=== PATIENT | male | born 1945 | race Hispanic/Latino ===

== ENCOUNTER 2024-09-21 03:02 | Inpatient (IN) | payer MEDICARE ==
[~2024-09-21] VITALS: Ht 175.3 cm; Wt 72.6 kg
[2024-09-21] VITALS (12 sets, daily range): BP systolic 139; BP diastolic 74; PULSE 64–107; RESP 18–32; TEMP 97.8; O2SAT 87–100
[~2024-09-21 03:02] MED LIST: AMLO-257 PO; ASPI-1197 PO; ASPI-1443 PO; ATOR40TA71 PO; DAPA10TA PO; DAPA1TAB3 PO; FLUT12AE IH; FURO20TA4 PO; GLIP-162 PO; HYDR50TA37 PO
[2024-09-21 03:13] LABS: ABG BASE EXCESS -4.8 mmol/L (-2.0-3.0); ABG HCO3 19.9 mmol/L (21.0-28.0); ABG OXYGEN SATURATION 95.6 % (94.0-98.0); ABG PCO2 35 mmHg (35-48); ABG PH 7.369 (7.350-7.450); CARBON MONOXIDE 0.6 % (0.5-1.5); DEVICE COMMENT LR RN; HHb 4.4; PO2, ARTERIAL BG 93.7 mmHg (83.0-108.0); VENT MODE, BG NRM (ROOM AIR)
[2024-09-21] MEDS: Solu-medROL 125MG VIAL IVP ONE (03:20)
[2024-09-21] MEDS: IpraTROPium/alBUTERol SULFATE 3 ML SOLUTION IH ONE ×2 (03:23)
--- NOTE | 2024-09-21 03:23 | ERN ---
ED Note History of Present Illness Stated Complaint: SOB X 1 HOUR Chief Complaint: Shortness of Breath Time Seen by MD: 03:06 Dictation: This is a 79-year-old male who presented to the emergency room via EMS with increasing shortness of breath and respiratory distress for more than an hour. He was recently admitted to the hospital for similar presentation and discharged on 09/13/2024 after course of hospitalization. EMS reported that he was in moderate distress and they placed him on O2, gave albuterol nebulizer treatment prior to arrival in the ER. Patient appeared to be in moderate distress, speaks in broken sentences. No diaphoresis. Patient was recently treated with antibiotic therapy and steroids. No recent travel or new pets at home. He reports progressively getting worse with reduced exercise tolerance over the years. He admits to cough with very scant amounts of sputum if any. No hemoptysis. Patient has never been intubated in the past A stat ABG was obtained which showed a pH of 7.36 pCO2 of 35 PO2 of 93 on FiO2 of 100% Temperature 98.2 pulse 71 respirations 18 blood pressure 130/65 with a pulse oximetry of 98% on 100% O2 via non-rebreather mask His chronic medical problems include hypertension, hyperlipidemia, diabetes mellitus type 2 , atrial fibrillation status post pacemaker placement Allergies: Coded Allergies: No Known Drug Allergies (Unverified Allergy, Unknown, 07/17/24) Home Meds Active Scripts Fluticasone/Salmeterol (Advair Hfa 45-21 Mcg Inhaler) 45 Mcg-21 Mcg/Actuation Hfa.aer.ad, 2 PUFF IH BID PRN for SHORTNESS OF BREATH for 30 Days, #1 INHALER 0 Refills Prov:RJ LEON NP 07/21/24 Hydralazine HCl (Hydralazine HCl) 50 Mg Tablet, 50 MG PO BID for 30 Days, #30 TAB Prov:RJ LEON NP 07/21/24 Reported Medications Furosemide (Furosemide) 20 Mg Tablet, 1 TAB PO DAILY for 30 Days, #30 TAB 0 Refills 09/10/24 Aspirin (Aspirin) 81 Mg Tab.chew, 1 TAB PO DAILY for 30 Days, #30 TAB 0 Refills 09/10/24 Dapagliflozin Propanediol (Farxiga) 10 Mg Tablet, 1 TAB PO DAILY for 30 Days, #30 TAB 0 Refills 09/10/24 Amlodipine Besylate (Amlodipine Besylate) 5 Mg Tablet, 1 TAB PO DAILY for 30 Days, #30 TAB 0 Refills 09/10/24 Aspirin (Aspirin EC) 81 Mg Tablet.dr, 1 TAB PO DAILY for 30 Days, #30 TAB 0 Refills 07/17/24 Atorvastatin Calcium (Atorvastatin Calcium) 40 Mg Tablet, 1 TAB PO DAILY for 30 Days, #30 TAB 0 Refills 07/17/24 Glipizide (Glipizide ER) 5 Mg Tab.er.24, 1 TAB PO DAILY for 30 Days, #30 TAB 0 Refills 07/17/24 Dapagliflozin/Metformin HCl (Xigduo Xr 5 mg-1,000 mg Tablet) 5 Mg-1,000 Mg Tab.bp.24h, 1 TAB PO DAILY for diabetes for 30 Days, #30 TAB 0 Refills 07/17/24 Past Medical History Past Medical History: A-Fib, Diabetes-Type II, High Cholesterol, Heart Disease, Hypertension Surgical History: Pacer/AICD Family History: Negative RN Note Reviewed/Agreed w/PFSH: Yes Review of System Dictation Constitutional: Negative for fever,chills, and weight loss Eyes: Negative for injury, pain,redness, and discharge ENT: Negative for injury,pain or swelling Cardiovascular: Negative for chest pain, palpitations, and edema Respiratory: Positive for shortness of breath, cough, and wheezing, Abdomen/GI: Negative for abdominal pain, nausea, vomiting, diarrhea, and constipation Back: Negative for injury and pain : Negative for injury, bleeding and discharge MS/Extremity: Negative for injury and deformity Skin: Negative for rash, and discoloration Neuro: Negative for headache, weakness, numbness, tingling, and seizure Psych: Negative for suicide ideation, homicidal ideation, and hallucinations Initial Vital Sign VS Vital Signs Date Time Temp Pulse Resp B/P (MAP) Pulse Ox O2 Delivery O2 Flow Rate FiO2 09/21/24 03:03 98.2 71 18 130/65 96 Aerosol Mask+ 10 100 Physical Exam Dictation General: awake, alert, elderly male in moderate distress on 100% oxygen via non- rebreather mask Head/Face: Normocephalic, atraumatic Eyes: PERRL, EOMI, vision at baseline ENT: oral cavity clear, TMs clear, no signs of infection Neck: Trachea midline, supple, no nuchal rigidity Cardiovascular: RRR, normal S1/S2, No MRGs, no JVD Respiratory: Poor air entry with prolonged expiratory phase, decreased breath sounds bilaterally Abdomen: Soft, non-tender, non-distended, normal bowel sounds, no guarding or rebound. Skin: Warm, dry, normal turgor, no rash MS/Extremity: Pulses equal, no cyanosis, neurovascular intact, FROM Neuro: COAx4, GCS 15, strength 5/5, CN 2-12 intact, normal cerebellar exam, normal gait, Psych: Normal behavior, mood, and affect normal Extremities-trace edema without any palpable cords, Homans sign is negative Results (Laboratory/Radiology) Laboratory/Radiology Laboratory Tests Test 09/21/24 03:12 09/21/24 03:15 09/21/24 03:25 Blood Gas Specimen Type Arterial Arterial Blood pH 7.369 (7.350-7.450) Arterial Blood Partial Pressure CO2 35 mmHg (35-48) Arterial Blood Partial Pressure O2 93.7 mmHg (83.0-108.0) Arterial Blood HCO3 19.9 mmol/L (21.0-28.0) L Arterial Blood Oxygen Saturation 95.6 % (94.0-98.0) Arterial Blood Base Excess -4.8 mmol/L (-2.0-3.0) L Hemoglobin (Blood Gas) 10.7 g/dL (13.5-17.5) L Sodium (Blood Gas) 136 MMOL/L (136-145) Bedside Potassium (Blood Gas) 3.7 MMOL/L (3.4-4.5) Bedside Chloride (Blood Gas) 102 MMOL/L (98-107) Bedside Glucose (Blood Gas) 123 MG/DL (65-95) H Bedside Ionized Calcium (Blood Gas) 1.18 MMOL/L (1.15-1.33) Bedside Lactic Acid (Blood Gas) 0.87 MMOL/L (0.36-0.75) H Blood Gas Temperature 37.0 CELSIUS (35.5-37.0) Blood Gas Flow-by 15.00 L/min (0.00-15.00) Blood Gas Vent Mode NRM (ROOM AIR) FiO2 100.0 % Blood Gas Specimen Comment LR RN White Blood Count 12.2 K/uL (4.8-10.8) H Red Blood Count 4.85 MIL/uL (4.50-6.20) Hemoglobin 10.9 g/dL (14.0-18.0) L Hematocrit 36.8 % (42-54) L Mean Corpuscular Volume 75.9 fL (79-99) L Mean Corpuscular Hemoglobin 22.5 pg (27.0-33.0) L Mean Corpuscular Hemoglobin Concent 29.6 g/dL (32.0-36.0) L Red Cell Distribution Width 17.2 % (11.0-15.5) H Platelet Count 223 K/uL (130-400) Mean Platelet Volume 9.7 fL (7.5-10.5) Immature Granulocyte % (Auto) 0.3 % (0-1) Neutrophils (%) (Auto) 77.5 % (40.0-77.0) H Lymphocytes (%) (Auto) 11.9 % (21.0-51.0) L Monocytes (%) (Auto) 7.2 % (3.0-13.0) Eosinophils (%) (Auto) 2.5 % (0.0-8.0) Basophils (%) (Auto) 0.6 % (0.0-5.0) Neutrophils # (Auto) 9.4 K/uL (1.8-7.7) H Lymphocytes # (Auto) 1.4 K/uL (1.0-4.8) Monocytes # (Auto) 0.9 K/uL (0.1-1.0) Eosinophils # (Auto) 0.30 K/uL (0.00-0.70) Basophils # (Auto) 0.07 K/uL (0.00-0.20) Absolute Immature Granulocyte (auto 0.04 K/uL (0-1) Nucleated Red Blood Cells 0.0 % (0.0-0.19) Red Blood Cell Morphology See comments Sodium Level 138 mmol/L (136-145) Potassium Level 3.5 mmol/L (3.5-5.1) Chloride Level 103 mmol/L (101-111) Carbon Dioxide Level 28 mmol/L (21-32) Blood Urea Nitrogen 25 mg/dL (7-18) H Creatinine 1.5 mg/dL (0.5-1.3) H Glomerular Filtration Rate Calc 48 mL/min (>90) Random Glucose 136 mg/dL (70-105) H Lactic Acid Level 1.9 mmol/L (0.8-2.5) Total Calcium 8.8 mg/dL (8.5-10.1) Total Creatine Kinase 147 U/L (21-232) Troponin I High Sensitivity 19.0 ng/L (4-75) B-Type Natriuretic Peptide 519 pg/mL (0-100) H Influenza Type A Antigen Negative For Type A Influenza Type B Antigen Negative For Type B SARS-CoV-2, RNA, NAAT NEGATIVE SARS CoV-2 Labs Reviewed?: Yes EKG Comment: Twelve lead EKG done on 09/21/2024 at 3:09 a.m. showed a sinus rhythm with a r ate of 60 HI 163, QRS 176, QT/QTC 489/488. Impression sinus rhythm AV paced complexes. Interpreted by ER MD Dr. Pinzon ED Course ED Course Orders Procedure Category Date Status Time Arterial Blood Gas RT 09/21/24 Transmitted 03:07 O2 Nc Keep Sats CPOE 09/21/24 Transmitted Greater 92% 03:07 Bipap Settings RT 09/21/24 Transmitted 03:07 Cbc With Differential LAB 09/21/24 Complete 03:07 B-Type Natriuretic LAB 09/21/24 Complete Peptide 03:07 Cardiac Panel LAB 09/21/24 Complete 03:07 12 Lead Ekg Tracing- EKG 09/21/24 Logged Technical 03:07 Methylprednisolone PHA 09/21/24 Complete Succ 125mg (Solu-Medr 03:30 Basic Metabolic Panel LAB 09/21/24 Complete 03:07 Arterial Blood Gas LAB 09/21/24 Complete Arterial + 03:12 Lactic Acid LAB 09/21/24 Complete 03:17 Chest 1vw RAD 09/21/24 Taken 03:17 Blood Cult KARLOS 09/21/24 In Process 03:17 Ipratropium/Albuterol PHA 09/21/24 Complete Neb (Duoneb) 03:30 Ipratropium/Albuterol PHA 09/21/24 Complete Neb (Duoneb) 03:21 Influenza Type A & B, LAB 09/21/24 Complete Rapid 03:29 Covid Rna Naat LAB 09/21/24 Complete 03:29 Amlodipine 5 Mg Tab PHA 09/21/24 Logged (Norvasc 5mg Tab) 09:00 Aspirin 81mg Chew Tab PHA 09/21/24 Logged (Aspirin 81mg Chew 09:00 Aspirin 81mg Ec Tab PHA 09/21/24 Logged (Aspirin 81mg Ec Tab 09:00 Atorvastatin 40mg PHA 09/21/24 Logged (Lipitor 40mg) 09:00 Furosemide 20 Mg PHA 09/21/24 Logged Tablet (Lasix 20mg 09:00 (Nf) Dapagliflozin PHA 09/21/24 Pending Propanediol (Farxiga) 09:00 Levofloxacin 750 PHA 09/21/24 Transmitted Mg/D5w 150 Ml 06:30 Edm Admit Bridge Order ADM 09/21/24 Transmitted 06:25 Admit Orders ADM 09/21/24 Transmitted 06:25 Current Medications Medications (Trade) Dose Ordered Sig/Rachelle Route PRN Reason Start Time Stop Time Status Last Admin Dose Admin Albuterol (DUOneb) 1 udvial ONCE ONCE IH 09/21/24 03:30 09/21/24 03:31 DC 09/21/24 03:23 Albuterol (DUOneb) 1 udvial STK-MED ONCE IH 09/21/24 03:21 09/21/24 03:21 DC Amlodipine Besylate (NorvASC 5MG TAB) 5 mg DAILY PO 09/21/24 09:00 10/21/24 08:59 UNV Aspirin (Aspirin 81mg Chew Tab) 81 mg DAILY PO 09/21/24 09:00 10/21/24 08:59 UNV Aspirin (Aspirin 81mg Ec Tab) 81 mg DAILY PO 09/21/24 09:00 10/21/24 08:59 UNV Atorvastatin Calcium (LIPItor 40MG) 40 mg DAILY PO 09/21/24 09:00 10/21/24 08:59 UNV Furosemide (LASix 20MG TAB) 20 mg DAILY PO 09/21/24 09:00 10/21/24 08:59 UNV Methylprednisolone Sodium Succinate (Solu-medROL 125MG) 125 mg ONCE ONCE IVP 09/21/24 03:30 09/21/24 03:31 DC 09/21/24 03:20 Miscellaneous Medication (Dapagliflozin Propanediol (Farxiga)) 1 tab DAILY PO 09/21/24 09:00 10/21/24 08:59 UNV Vital Signs Date Time Temp Pulse Resp B/P (MAP) Pulse Ox O2 Delivery O2 Flow Rate FiO2 09/21/24 06:00 98.1 62 19 93/63 94 Bi-PAP+ 30 09/21/24 04:59 64 16 91/54 94 Bi-PAP+ 30 09/21/24 04:03 62 26 93/57 96 Bi-PAP+ 30 09/21/24 03:26 64 20 09/21/24 03:18 67 22 30 09/21/24 03:04 98.2 71 18 130/65 96 Aerosol Face Mask 09/21/24 03:03 98.2 71 18 130/65 96 Aerosol Mask+ 10 100 We will perform diagnostic labs, advanced imaging and administer medications according to the patient's complaint. Once the results are available, will r jilliew and personally interpreted the labs to rule out any acute life-threatening emergency the trach require immediate intervention and treatment. I will then re-evaluate the patient after treatment and diagnostic exams have return to determine whether the patient requires any further testing, can safely be discharged home or need further admission to hospital for additional treatment and evaluation. 3:10 a.m. patient was placed on BiPAP to reduce the work of breathing. Reviewed labs CBC showed a white count of 12.2 hemoglobin of 10.9. ABG showed pH of 7.36 pCO2 of 35 PO2 of 93 on 100% non-rebreather mask 3:10 a.m. DuoNeb was instituted.. Patient resting comfortably on BiPAP and tolerating quite well. We will admit him to the hospital and initiate antibiotic therapy. On follow-up evaluations his blood pressure is running on the low end which could be secondary to dynamic hyperinflation from BiPAP. FiO2 has been reduced to avoid the hold and effect and worsening hypercapnia 6:00 a.m. patient has been accepted by the hospitalist group mid-level provider for Dr. Reeves for further management Medical Decision Making MDM MDM: Differential diagnosis: COPD with acute exacerbation, pneumonitis, cor pulmonale Rationale: Tests considered and ordered secondary to shared decision making include: labs, ECG and radiology Previous outside records reviewed: Old ER visits. Risk of complication and/or morbidity or mortality of patient management: None Medications-Per medication reconciliation Need for hospitalization: Patient does meet criteria for hospitalization. Need for emergency major/minor surgery: No There are no social concerns with this patient. Prescription drug management Prescriptions will include symptomatic care Patient's prior external medical records from other ER visits were reviewed by me as indicated. Prior testing and results from previous visits were reviewed. Prior tests were taken into account with medical decision making and resource utilization, independent historian/historians were used to obtain complete medical history. I independently interpreted the test that were performed, results were reviewed by me and considered findings on radiology if ordered. Medical management and examination interpretation discussions were had by me with other qualified healthcare professionals as indicated for the patient's care. Problem List Problem List: (1) Acute respiratory failure with hypoxemia (2) COPD with exacerbation (3) History of chronic atrial fibrillation Critical Care Note Critical Time: 30 minutes Comment(s) Life-threatening illness;--moderate respiratory distress, acute on chronic respiratory failure with hypoxia Risk of morbidity mortality-high Complexity of medical decision making-high (X) high probability of sudden clinically significant deterioration in the patient's condition required the highest level of my preparedness to intervene urgently. I provided critical care services requiring my direct and personal management as noted below; (x) chart data review (x) reviewing nurse's notes and/charts (x) documentation time (x) consultation collaboration on findings and therapy options (x) medication orders and management (x) re-evaluations (x) care, transfer of care, and discharge plans (x) ordering and interpreting studies (x) ordering and reviewing labs (x) obtaining necessary history from family, EMS, half-way, private MD, surrogate decision makers because patient was unable to give history due to limitations in the mental status (x) aggregate critical care time was ( 30 ) minutes. This includes only time during which I was engaged in work directly related to the patient's care as described above whether at the bedside or elsewhere in the ER while the patient was critical. My time did not include minutes spent treating any other patients simultaneously or on activities that did not directly contribute to the patient's treatment. It did not include time spent performing other reported procedures or services of residents if any. Emma BARKLEY DX & DISP Disposition: Inpatient Decision to Admit Time: 03:21 Departure Impression: Primary Impression: Acute respiratory failure with hypoxemia Additional Impressions: COPD with exacerbation, History of chronic atrial fibrillation, Pacemaker Condition: Stable Additional Instructions: Patient was informed of all the diagnostic labs and procedures conducted in the emergency room today and demonstrated understanding of the results. I personally reviewed and interpreted all the diagnostic exams performed in the ER today. The patient will be admitted to the hospital for further treatment and evaluation. Disposition-admit to facility Condition-stable/guarded Course-uncertain at this time Pain status-decreased Assessment-exam unchanged Admission Certification- I certify that the patients status is appropriate and is based on my best clinical judgment and the patient's condition as documented in the medical records Referrals: DEEPTI BETTENCOURT DO (PCP) EMMA PINZON MD Sep 21, 2024 03:23
[2024-09-21 03:36] LABS: BASOPHILS # (AUTO) 0.07 K/uL (0.00-0.20); BASOPHILS % (AUTO) 0.6 % (0.0-5.0); EOSINOPHILS % (AUTO) 2.5 % (0.0-8.0); HEMATOCRIT 36.8 % (42-54); IMMATURE GRANULOCYTE ABSOLUTE 0.04 K/uL (0-1); LYMPHOCYTES # (AUTO) 1.4 K/uL (1.0-4.8); LYMPHOCYTES % (AUTO) 11.9 % (21.0-51.0); MEAN CORPUSCULAR HEMOGLOBIN 22.5 pg (27.0-33.0); MEAN CORPUSCULAR HGB CONC 29.6 g/dL (32.0-36.0); MEAN CORPUSCULAR VOLUME 75.9 fL (79-99); MONOCYTES # (AUTO) 0.9 K/uL (0.1-1.0); MONOCYTES % (AUTO) 7.2 % (3.0-13.0); NEUTROPHILS # (AUTO) 9.4 K/uL (1.8-7.7); NEUTROPHILS % (AUTO) 77.5 % (40.0-77.0); PLATELET COUNT (AUTO) 223 K/uL (130-400); RED BLOOD CELL COUNT(AUTO) 4.85 MIL/uL (4.50-6.20); RED CELL DISTRIBUTION WIDTH 17.2 % (11.0-15.5); WHITE BLOOD COUNT (AUTO) 12.2 K/uL (4.8-10.8)
[2024-09-21 03:51] LABS: CREATININE 1.5 mg/dL (0.5-1.3); POTASSIUM 3.5 mmol/L (3.5-5.1)
[2024-09-21 03:55] LABS: SARS-CoV-2, RNA, NAAT NEGATIVE SARS CoV-2 (NEGATIVE)
[2024-09-21 03:55] LABS: B-TYPE NATRIURETIC PEPTIDE 519 pg/mL (0-100)
[2024-09-21 04:02] LABS: INFLUENZA TYPE A Negative For Type A (NEGATIVE); INFLUENZA TYPE B Negative For Type B (NEGATIVE)
[2024-09-21] MEDS ORDERED: ondanSETRON 4MG INJ IV PRN (06:30)
[2024-09-21] MEDS ORDERED: LACTULOSE 20 GM/30 ML UDCUP PO PRN (06:30)
[2024-09-21] MEDS ORDERED: guaiFENesin-DM 200/20MG 10ML PO PRN (06:30)
[2024-09-21] MEDS ORDERED: NITROGLYCERIN 0.4 MG SL TAB SL PRN (06:30)
[2024-09-21] MEDS ORDERED: DiphenhydrAMINE HCL 50 MG/ML VIAL IV PRN (06:30)
[2024-09-21] MEDS ORDERED: DEXTROSE 50%-WATER 50 ML DISP.SYRIN IV PRN (06:30)
[2024-09-21] MEDS ORDERED: MAG/ALUM/SIMETH 30 ML UDCUP PO PRN (06:30)
[2024-09-21] MEDS ORDERED: GLUCAGON 1MG KIT 1 MG ML IM PRN (06:30)
[2024-09-21] MEDS ORDERED: acetaMINOPHEN 325 MG TAB PO PRN ×2 (06:30)
[2024-09-21] MEDS ORDERED: MAGNESIUM 2GM PREMIX 50ML 50 ML IV PRN (06:30)
--- NOTE | 2024-09-21 06:30 | NUR ---
PATIENT C/O ITCHING TO ARMS, WILL ADMINISTER ORDERED BENADRYL
[2024-09-21] MEDS: DiphenhydrAMINE HCL 25 MG CAPSULE PO PRN (06:45)
[2024-09-21] MEDS: levoFLOXacin 750 MG TABLET PO ONE (06:47)
[2024-09-21] MEDS ORDERED: BENZOCAINE/MENTH/CETYLPYRD CL 1 EACH LOZENGE MM PRN (07:00)
[2024-09-21] MEDS ORDERED: ALBUTEROL 0.083% 2.5 MG/3 ML INH IH PRN (07:00)
[2024-09-21] MEDS ORDERED: polyETHYLene GLYCol 3350 17 GM POWD.PACK PO PRN (07:00)
[2024-09-21] MEDS ORDERED: guaiFENesin SUGAR-FREE 100 MG/5 ML UDCUP PO PRN (07:00)
--- NOTE | 2024-09-21 07:01 | EKG ---
[facility] Test Date: 2024-09-21 Test Time: 03:09:20 Pat Name: LOIS HOOKER Department: [facility]HIP Room: ED 10 Gender: M Clinical Quality Assurance Specialist: [id number] : 1945 Requested By: CANDIS BUCIO Order Number: [id number] Reading MD: Yaneli Maya Measurements Intervals [place] Rate: 60 P: 0 TX: 163 QRS: 40 QRSD: 176 T: 29 QT: 489 QTc: 488 Interpretive Statements Atrial-ventricular dual-paced complexes Compared to ECG 09/10/2024 08:38:21 Sinus rhythm no longer present Ventricular premature complex(es) no longer present First degree AV block no longer present Right bundle-branch block no longer present Electronically Signed On 09-21-2024 08:21:01 [employer] by Yaneli Maya Please click the below link to view image of tracing.
[2024-09-21] MEDS: ALBUTEROL 0.083% 2.5 MG/3 ML INH IH PRN (07:21)
[2024-09-21] MEDS: levoFLOXacin 750 MG/D5W 150ML BAG IV ONE (07:48)
--- NOTE | 2024-09-21 07:52 | NUR ---
PATIENT RETURNED FROM CT SCAN
[2024-09-21] MEDS: DOXYCYCLINE 100MG+NS 250ML 250 ML IV SCH (07:56)
[2024-09-21] MEDS: amLODIPine 5 MG TAB PO SCH (08:06)
[2024-09-21] MEDS: FAMOTIDINE 20MG VIAL IV SCH (08:06)
[2024-09-21] MEDS: furoSEMIDE 20 MG TABLET PO SCH (08:06)
[2024-09-21] MEDS: ASPIRIN 81MG CHEW TAB PO SCH (08:06)
[2024-09-21] MEDS: atorVAStatin 40 MG TABLET PO SCH (08:06)
[2024-09-21] MEDS: FARXIGA PO SCH (08:11)
--- NOTE | 2024-09-21 08:26 | HMCIMG ---
CT NONCONTRAST CHEST Comparison Study: none History: pleural efusions, pna Technique: Helical CT of the chest without IV contrast at 5 mm collimation. Coronal and sagittal reformations also done. CT Dose Index (CTDI): 2.38 mGy Dose Length Product (DLP): 94.8 total mGy-cm Findings: The airway is intact. The trachea and major bronchi are unremarkable. The chest exam shows no pulmonary nodules or masses. No significant pulmonary parenchymal abnormalities are noted. Defined infiltrates particularly throughout the right lung consistent with pneumonia. Bilateral pleural effusions, small on the left, moderate on the right. There is no pneumothorax. There is no evidence of pneumomediastinum. The nonenhanced exam of the yvon and mediastinum is unremarkable. No evidence of hilar enlargement is seen. The aorta shows no aneurysmal dilatation or significant atheromatous calcification. No significant brachiocephalic vascular abnormalities are seen. The heart is unremarkable. It is not enlarged. No significant coronary arterial calcifications are seen. There is no pericardial effusion. The rib cage appears unremarkable. The soft tissues of the chest wall are unremarkable. The dorsal spine shows no significant abnormalities. IMPRESSION: Right-sided pneumonia. Follow-up advised. Bilateral pleural effusions. This study was performed using dose reduction techniques to include automated exposure control and/or adjustment of the mA and/or kV according to patient size.
--- NOTE | 2024-09-21 08:32 | HMCIMG ---
Exam Type: CHEST 1VW Clinical Information: SOB Comparison: September 11, 2024 Findings: Pulmonary pattern is as before. No worrisome interval changes have taken place. Impression: Stable exam.
[2024-09-21] MEDS ORDERED: FAMOTIDINE 20MG VIAL IV SCH (09:00)
[2024-09-21] MEDS ORDERED: ASPIRIN 81 MG EC TAB PO SCH (09:00)
[2024-09-21] MEDS: ALBUTEROL 0.083% 2.5 MG/3 ML INH IH SCH (10:04)
--- NOTE | 2024-09-21 10:18 | CONS ---
[facility] CONSULTATION NOTE Date Patient Seen: Sep 21, 2024 Time of Visit: 10:16 Supervising Physician: Dr. Calzada Reason for Consultation: "copd ex" Attending Physician: Hospitalist Team Primary Care Physician: Dr. Cheko Kincaid PROBLEM LIST: Acute on chronic hypoxemic respiratory failure requiring BiPAP on admission Acute COPD exacerbation Acute diastolic CHF exacerbation, EF 70 % Right sided pneumonia Uncontrolled hypertension Dyslipidemia Diabetes Mellitus, type II HPI: This is a 79 year old male with a past medical history of COPD, hyperlipidemia, hypertension, pacemaker, diabetes, CYRUS, CHF diastolic dysfunction, who came to emergency department via EMS with c/o worsening dyspnea and wheezing which started today. Patient was recently discharged from [facility] on 09/13, admitted at that time with same complaint. He is currently requiring Bipap support. CXR shows right sided pneumonia and bilateral pleural effusions. WBC elevated at 12.2 He has been started on IV Lasix, abx and nebs. We have added Solu-Medrol. Pt will be admitted to [facility] PAST MEDICAL HX: see above PAST SURGICAL HX: noncontributory SOCIAL HISTORY: No tobacco, ETOH, or illicit drug use Coded Allergies: No Known Drug Allergies (Unverified Allergy, Unknown, 07/17/24) REVIEW OF SYSTEMS: 12 point ROS reviewed with patient. Pertinent positives mentioned above. Otherwise negative. PHYSICAL EXAM: GENERAL: alert, weak, awake oriented x 3, in moderate respiratory distress, on Bipap support HEENT: EOMI, Sclera non icteric, moist mucosa NECK: Supple, no JVD, trachea midline LUNGS: Tachypneic, with increased wob, +crackles, +wheezing HEART: Regular rate and rhythm. Normal S1 and S2, without murmurs ABD: Abdomen soft, nontender. Bowel sounds present EXT: No clubbing cyanosis or edema NEURO: Alert and oriented to person, follows commands Vital Signs (last 8hr) Date Time Temp Pulse Resp B/P (MAP) Pulse Ox O2 Delivery O2 Flow Rate FiO2 09/21/24 10:13 40 09/21/24 10:10 84 28 30 09/21/24 09:55 87 22 09/21/24 07:23 93 22 09/21/24 07:14 98.1 78 27 132/62 96 Bi-PAP+ 30 09/21/24 07:05 74 22 30 12/15/24 06:00 98.1 62 19 93/63 94 Bi-PAP+ 30 09/21/24 04:59 64 16 91/54 94 Bi-PAP+ 30 09/21/24 04:03 62 26 93/57 96 Bi-PAP+ 30 09/21/24 03:26 64 20 09/21/24 03:18 67 22 30 09/21/24 03:04 98.2 71 18 130/65 96 Aerosol Face Mask 09/21/24 03:03 98.2 71 18 130/65 96 Aerosol Mask+ 10 100 LABS: Hematology Labs: Test 09/21/24 03:15 Range/Units White Blood Count 12.2 H 4.8-10.8 K/uL Red Blood Count 4.85 4.50-6.20 MIL/uL Hemoglobin 10.9 L 14.0-18.0 g/dL Hematocrit 36.8 L 42-54 % Mean Corpuscular Volume 75.9 L 79-99 fL Mean Corpuscular Hemoglobin 22.5 L 27.0-33.0 pg Mean Corpuscular Hemoglobin Concent 29.6 L 32.0-36.0 g/dL Red Cell Distribution Width 17.2 H 11.0-15.5 % Platelet Count 223 130-400 K/uL Mean Platelet Volume 9.7 7.5-10.5 fL Immature Granulocyte % (Auto) 0.3 0-1 % Neutrophils (%) (Auto) 77.5 H 40.0-77.0 % Lymphocytes (%) (Auto) 11.9 L 21.0-51.0 % Monocytes (%) (Auto) 7.2 3.0-13.0 % Eosinophils (%) (Auto) 2.5 0.0-8.0 % Basophils (%) (Auto) 0.6 0.0-5.0 % Neutrophils # (Auto) 9.4 H 1.8-7.7 K/uL Lymphocytes # (Auto) 1.4 1.0-4.8 K/uL Monocytes # (Auto) 0.9 0.1-1.0 K/uL Eosinophils # (Auto) 0.30 0.00-0.70 K/uL Basophils # (Auto) 0.07 0.00-0.20 K/uL Absolute Immature Granulocyte (auto 0.04 0-1 K/uL Nucleated Red Blood Cells 0.0 0.0-0.19 % Red Blood Cell Morphology See comments Chemistry Labs: Test 09/21/24 03:15 Range/Units Sodium Level 138 136-145 mmol/L Potassium Level 3.5 3.5-5.1 mmol/L Chloride Level 103 101-111 mmol/L Carbon Dioxide Level 28 21-32 mmol/L Blood Urea Nitrogen 25 H 7-18 mg/dL Creatinine 1.5 H 0.5-1.3 mg/dL Glomerular Filtration Rate Calc 48 >90 mL/min Random Glucose 136 H 70-105 mg/dL Lactic Acid Level 1.9 0.8-2.5 mmol/L Total Calcium 8.8 8.5-10.1 mg/dL Total Creatine Kinase 147 21-232 U/L Troponin I High Sensitivity 19.0 4-75 ng/L B-Type Natriuretic Peptide 519 H 0-100 pg/mL Coagulation Labs: Test 09/21/24 03:15 Range/Units D-Dimer Quantitative (PE/DVT) 601 *H 0-500 ng/mL DIAGNOSTICS / RADIOLOGY RESULTS: [ ] Plan: Pulmonary Recommendations:. Supplemental 02 as needed. Continue BiPAP PRN Maintain aspiration precautions at all times Continue abx: Cefepime and Doxycycline Continue IV Lasix Continue DuoNeb around the clock We will start Solu-Medrol 40mg IV q8h Continue GI and DVT prophylaxis as appropriate Disposition: Per primary team On behalf of [facility], thank you for this interesting consult. We will follow along closely with you. Please feel free to call with any questions. Other: Total patient care time excluding all procedures: 45 min RJ HELLER NP Sep 21, 2024 10:18
--- NOTE | 2024-09-21 10:29 | NUR ---
JENIFFER VIEYRA INFORMED PATIENT REQUESTING "MORE AIR". ORDERS TO CONSULT PULMO PROVIDED
[2024-09-21] MEDS: furoSEMIDE 40MG VIAL IV SCH (10:49)
--- NOTE | 2024-09-21 10:52 | NUR ---
Spoke to nurse patient is on a bipap V/Q scan placed on hold till further notice.
--- NOTE | 2024-09-21 10:52 | NUR ---
RAD NUCLEAR MEDICINE SPOKE TO NURSE PATIENT IS ON A BIPAP EXAM WILL BE PLACED ON HOLD UNTIL FURTHER NOTICE.
[2024-09-21] MEDS: furoSEMIDE 20MG VIAL IV ONE (10:55)
--- NOTE | 2024-09-21 11:20 | HP ---
[facility] HISTORY AND PHYSICAL Date of Service: Sep 21, 2024 Time of Service: 11:[address] Corrales HISTORY OF PRESENT ILLNESS: [Patient is 79 years old male with a past medical history of COPD, hyperlipidemia, hypertension, pacemaker, AFib, diabetes, CYRUS, CHF diastolic dysfunction, who came to emergency department via EMS with a increased shortness of breaths and respiratory distress for about 2 hours. Patient was just recently admitted and then discharged from [facility] between 09/10 and 09/13 with same complaint. ] EMS reported that he was in moderate distress and they placed him on O2, gave albuterol nebulizer treatment prior to arrival in the ER. Patient appeared to be in moderate distress, speaks in broken sentences. No diaphoresis. Patient was recently treated with antibiotic therapy and steroids. No recent travel or new pets at home. He reports progressively getting worse with reduced exercise tolerance over the years. He admits to cough with very scant amounts of sputum if any. No hemoptysis. Patient has never been intubated in the past. A stat ABG was obtained which showed a pH of 7.36 pCO2 of 35 PO2 of 93 on FiO2 of 100% Most recent vital signs include temperature 98.1 pulse 84 respiration 28 blood pressure 137/67. Patient is on BiPAP FiO2 30%. WBC 12.2 hemoglobin 10.9 hematocrit 36.8 platelets 223. Sodium 138 potassium 3.5 CO2 28 creatinine 1.5 BUN 25 GFR 136 calcium 8.8 CK 147 troponin negative x1 BNP 519 lactic acid 1.9. 09/21/2024 chest x-ray shows stable exam. 09/21/2024 CT chest showed right- sided pneumonia bilateral pleural effusions. We will consult x ray tech for further evaluation/recommendations. REVIEW OF SYSTEMS CONSTITUTIONAL: Denies fevers, chills, or night sweats. No unintentional weight loss reported. NEUROLOGICAL: Denies headache, amaurosis fugax, motor weakness, sensory deficit, vertigo/spinning sensation, gait abnormalities, or tremors. ENT: No hearing loss, otalgia, otorrhea, rhinitis, rhinorrhea, hoarseness, or sore throat. CARDIOVASCULAR: Denies any exertional angina, dyspnea on exertion, orthopnea, paroxysmal nocturnal dyspnea, palpitations, life-threatening arrhythmias, claudication. PULMONARY: Denies any cough, phlegm/sputum, hemoptysis, pleuritic chest pain. SLEEP: Denies morning headaches, daytime somnolence or napping. Denies difficulty falling asleep, staying asleep, waking from sleep. Denies knowledge of snoring. Complains of shortness of breaths GASTROINTESTINAL: Denies any type of dysphagia to either liquids or solids. Denies nausea, vomiting, pyrosis, early satiety, abdominal pain, diarrhea, constipation, or changes in stool consistency or caliber. Denies coffee-ground emesis, hematemesis, hematochezia, or melanotic stools. GENITOURINARY: Denies frequency, urgency, nocturia, hematuria or incontinence (Storage/Irritative symptoms.) Low urinary stream, straining to void, urinary intermittency or hesitancy, splitting of the voiding stream, terminal dribbling. ENDOCRINOLOGIC: Denies polyuria, polydipsia, polyphagia or heat/cold intolerances. HEMATOLOGIC: Denies thrombophilia/previous clots, or coagulopathy/bleeding disorders. ONCOLOGIC: Denies personal history of malignancy. DERMATOLOGIC: Denies rashes or pruritus. PSYCHIATRIC: Denies any suicidal or homicidal ideation. Denies hallucinations. PAST MEDICAL HISTORY: [ ] PAST SURGICAL HISTORY: [ ] PAST SOCIAL HISTORY: [ ] FAMILY HISTORY: [ ] Coded Allergies: No Known Drug Allergies (Unverified Allergy, Unknown, 07/17/24) PHYSICAL EXAM GENERAL APPEARANCE: The patient is awake, alert, and oriented, in no acute cardiopulmonary distress. NEUROLOGICAL: Cranial nerves II-XII grossly intact. Motor is 5/5 in bilateral upper and lower extremities proximal to distal. No sensory deficits. HEENT: Face is symmetric. Pupils are equal and reactive. Extraocular movements are intact. NECK: Supple. No JVD. No thyromegaly. No submental, submandibular, pre- /postauricular, occipital or supraclavicular lymphadenopathy. CHEST: Normal chest expansion. No Telemetry. LUNGS: Absence of any rales, rhonchi or any wheezing. CARDIOVASCULAR: Regular. S1 and S2 normal. No appreciable rubs, murmurs or gallops. ABDOMEN: Soft, nontender, and nondistended. There is no rebound, voluntary g uarding, or rigidity. : Deferred. No [place]. EXTREMITIES: Non-edematous and not cyanotic. No clubbing. Good capillary refill. SKIN: No skin breakdown. Vital Sign (Last 24 Hours) 09/21/24 09/21/24 03:03 10:37 Temp 98.1 Pulse 84 Resp 28 B/P (MAP) 137/67 Pulse Ox 90 O2 Delivery Bi-PAP+ O2 Flow Rate 10 FiO2 30 LABS: Laboratory: Test 09/21/24 03:25 09/21/24 03:15 09/21/24 03:12 Range/Units Influenza Type A Antigen Negative For Type A NEGATIVE Influenza Type B Antigen Negative For Type B NEGATIVE SARS-CoV-2, RNA, NAAT NEGATIVE SARS CoV-2 NEGATIVE White Blood Count 12.2 H 4.8-10.8 K/uL Red Blood Count 4.85 4.50-6.20 MIL/uL Hemoglobin 10.9 L 14.0-18.0 g/dL Hematocrit 36.8 L 42-54 % Mean Corpuscular Volume 75.9 L 79-99 fL Mean Corpuscular Hemoglobin 22.5 L 27.0-33.0 pg Mean Corpuscular Hemoglobin Concent 29.6 L 32.0-36.0 g/dL Red Cell Distribution Width 17.2 H 11.0-15.5 % Platelet Count 223 130-400 K/uL Mean Platelet Volume 9.7 7.5-10.5 fL Immature Granulocyte % (Auto) 0.3 0-1 % Neutrophils (%) (Auto) 77.5 H 40.0-77.0 % Lymphocytes (%) (Auto) 11.9 L 21.0-51.0 % Monocytes (%) (Auto) 7.2 3.0-13.0 % Eosinophils (%) (Auto) 2.5 0.0-8.0 % Basophils (%) (Auto) 0.6 0.0-5.0 % Neutrophils # (Auto) 9.4 H 1.8-7.7 K/uL Lymphocytes # (Auto) 1.4 1.0-4.8 K/uL Monocytes # (Auto) 0.9 0.1-1.0 K/uL Eosinophils # (Auto) 0.30 0.00-0.70 K/uL Basophils # (Auto) 0.07 0.00-0.20 K/uL Absolute Immature Granulocyte (auto 0.04 0-1 K/uL Nucleated Red Blood Cells 0.0 0.0-0.19 % Red Blood Cell Morphology See comments D-Dimer Quantitative (PE/DVT) 601 *H 0-500 ng/mL Sodium Level 138 136-145 mmol/L Potassium Level 3.5 3.5-5.1 mmol/L Chloride Level 103 101-111 mmol/L Carbon Dioxide Level 28 21-32 mmol/L Blood Urea Nitrogen 25 H 7-18 mg/dL Creatinine 1.5 H 0.5-1.3 mg/dL Glomerular Filtration Rate Calc 48 >90 mL/min Random Glucose 136 H 70-105 mg/dL Lactic Acid Level 1.9 0.8-2.5 mmol/L Total Calcium 8.8 8.5-10.1 mg/dL Total Creatine Kinase 147 21-232 U/L Troponin I High Sensitivity 19.0 4-75 ng/L B-Type Natriuretic Peptide 519 H 0-100 pg/mL Blood Gas Specimen Type Arterial Arterial Blood pH 7.369 7.350-7.450 Arterial Blood Partial Pressure CO2 35 35-48 mmHg Arterial Blood Partial Pressure O2 93.7 83.0-108.0 mmHg Arterial Blood HCO3 19.9 L 21.0-28.0 mmol/L Arterial Blood Oxygen Saturation 95.6 94.0-98.0 % Arterial Blood Base Excess -4.8 L -2.0-3.0 mmol/L Hemoglobin (Blood Gas) 10.7 L 13.5-17.5 g/dL Sodium (Blood Gas) 136 136-145 MMOL/L Bedside Potassium (Blood Gas) 3.7 3.4-4.5 MMOL/L Bedside Chloride (Blood Gas) 102 98-107 MMOL/L Bedside Glucose (Blood Gas) 123 H 65-95 MG/DL Bedside Ionized Calcium (Blood Gas) 1.18 1.15-1.33 MMOL/L Bedside Lactic Acid (Blood Gas) 0.87 H 0.36-0.75 MMOL/L Blood Gas Temperature 37.0 35.5-37.0 CELSIUS Blood Gas Flow-by 15.00 0.00-15.00 L/min Blood Gas Vent Mode NRM ROOM AIR FiO2 100.0 % Blood Gas Specimen Comment LR RN Current Medications Medications (Trade) Dose Ordered Sig/Rachelle Route PRN Reason Start Time Stop Time Status Last Admin Dose Admin Acetaminophen (TYLenol 325MG TAB) 650 mg Q4H PRN PO MILD PAIN (1-3) 09/21/24 06:30 10/21/24 06:29 Acetaminophen (TYLenol 325MG TAB) 650 mg Q6H PRN PO TEMPERATURE GREATER THAN 101.5 09/21/24 06:30 10/21/24 06:29 Al Hydroxide/Mg Hydroxide (MAALox PLUS 30ML) 30 ml Q6H PRN PO INDIGESTION 09/21/24 06:30 10/21/24 06:29 Albuterol (DUOneb) 1 udvial [id number] IH 09/21/24 12:00 09/21/24 07:31 DC Albuterol Sulfate (Proventil 0.083% 2.5mg/3ml) 2.5 mg [id number] PRN IH RESPIRATORY SYMPTOMS 09/21/24 06:30 10/21/24 06:29 09/21/24 07:21 2.5 MG Albuterol Sulfate (Proventil 0.083% 2.5mg/3ml) 2.5 mg [id number] PRN IH RESPIRATORY SYMPTOMS 09/21/24 07:00 09/21/24 06:40 DC Albuterol Sulfate (Proventil 0.083% 2.5mg/3ml) 2.5 mg [id number] IH 09/21/24 10:00 10/21/24 09:59 09/21/24 10:04 2.5 MG Amlodipine Besylate (NorvASC 5MG TAB) 5 mg DAILY PO 09/21/24 09:00 10/21/24 08:59 09/21/24 08:06 5 MG Aspirin (Aspirin 81mg Chew Tab) 81 mg DAILY PO 09/21/24 09:00 10/21/24 08:59 09/21/24 08:06 81 MG Aspirin (Aspirin 81mg Ec Tab) 81 mg DAILY PO 09/21/24 09:00 09/21/24 06:30 DC Atorvastatin Calcium (LIPItor 40MG) 40 mg DAILY PO 09/21/24 09:00 10/21/24 08:59 09/21/24 08:06 40 MG Benzocaine (Cepacol Sore Throat Lozenge) 1 each Q2H PRN MM SORE THROAT 09/21/24 07:00 10/21/24 06:59 Dextrose (D50w) 50 ml AD PRN IV HYPOGLYCEMIA PROTOCOL 09/21/24 06:30 10/21/24 06:29 Diphenhydramine HCl (BENAdryl CAP) 25 mg Q4H PRN PO MILD ITCHING/RASH 09/21/24 07:00 10/21/24 06:59 09/21/24 06:45 25 MG Diphenhydramine HCl (BENAdryl INJ) 25 mg Q6H PRN IV SEVERE ITCHING/RASH 09/21/24 06:30 10/21/24 06:29 Doxycycline Hyclate 250 ml @ 125 mls/hr Q12H IV 09/21/24 07:00 10/01/24 06:59 09/21/24 07:56 125 MLS/HR Famotidine (Pepcid 20mg Vial) 20 mg BID IV 09/21/24 09:00 09/21/24 06:40 DC Famotidine (Pepcid 20mg Vial) 20 mg Q24H IV 09/21/24 09:00 10/21/24 08:59 09/21/24 08:06 20 MG Furosemide (LASix 20MG TAB) 20 mg DAILY PO 09/21/24 09:00 09/21/24 10:32 DC 09/21/24 08:06 20 MG Furosemide (LASix 40MG VIAL) 40 mg Q12H IV 09/21/24 11:00 10/21/24 10:59 Glucagon (Glucagon 1mg Kit) 1 mg AD PRN IM HYPOGLYCEMIA PROTOCOL 09/21/24 06:30 10/21/24 06:29 Guaifenesin (RobiTUSSin SUGAR-FREE 100 MG/ 5 ML UDCUP) 200 mg Q4H PRN PO COUGH 09/21/24 07:00 10/21/24 06:59 Guaifenesin/ Dextromethorphan (RobiTUSSin DM 200/20MG 10ML) 10 ml Q4H PRN PO COUGH 09/21/24 06:30 10/21/24 06:29 Home Med (Home Medication) DAILY PO 09/21/24 09:00 10/21/24 08:59 09/21/24 08:11 1 EACH Lactulose (Constulose 20gm/ 30ml Udcup) 20 gm BID PRN PO CONSTIPATION 09/21/24 06:30 10/21/24 06:29 Magnesium Sulfate 50 ml @ 0 mls/hr PROTOCOL PRN IV other 09/21/24 06:30 10/21/24 06:29 Nitroglycerin (Nitrostat) 0.4 mg PROTOCOL PRN SL CHEST PAIN 09/21/24 06:30 10/21/24 06:29 Ondansetron HCl (zoFRAN 4MG INJ) 4 mg Q6H PRN IV NAUSEA/VOMITING 09/21/24 06:30 10/21/24 06:29 Polyethylene Glycol (MIRalax 3350 17 GM POWD.PACK) 17 gm DAILY PRN PO CONSTIPATION 09/21/24 07:00 10/21/24 06:59 Zolpidem Tartrate (AmbIEN) 5 mg HS PRN PO INSOMNIA 09/21/24 06:30 10/21/24 06:29 DIAGNOSTICS / RADIOLOGY: [ ] ASSESSMENT: [ COPD exacerbation POA Acute on chronic hypoxic respiratory failure requiring BiPAP POA Uncontrolled hypertension POA Hyperlipidemia Uncontrolled diabetes mellitus type 2 with hypoglycemia POA Acute on chronic kidney injury POA 07/18/2024 2D echo EF more than 70% stage III diastolic dysfunction] 09/21/2024 CT chest right-sided pneumonia 09/21/2024 CT chest bilateral pleural effusions PLAN: [ Admit to: Medical-surgical floor with tele Consults: Chain Person Antibiotics: Doxycycline Tests: Ultrasound carotid, V/Q scan NEURO: Minimize central acting medications as possible. Fall Precautions. Well lighted room through the day and minimize interruptions through the night to prevent acute delirium. PULMONARY: Supplemental 02 as needed BiPAP as necessary, for respiratory distress Titrate Fio2 to keep Spo2 > or = 90% DuoNebs and CPT as needed IS hourly while awake for pulmonary hygiene Out of bed to chair as tolerated VAP Bundle Maintain aspiration precautions at all times CARDIOVASCULAR: Follow hemodynamics. Vital signs per facility protocol GI & NUTRITION: Continue nutritional support Aspirations precautions Prokinetic agents and laxatives as needed KIDNEYS & ELECTROLYTES: Strict monitoring of intake and output Daily weights Avoid nephrotoxic agents Monitor electrolytes and replace as needed Goal urine output of 30mL/hr or 0.5mL/kg/hr Medications to be dosed according to renal function. Avoid contrast if possible ENDOCRINE: Maintain blood glucose between 100-180 at all times. Insulin sliding scale for blood glucose management Hypoglycemia and hyperglycemia protocol in place INFECTIOUS DISEASE: Trend temperature, WBC and procalcitonin level Follow cultures, deescalate antibiotics as soon as possible. Panculture if new onset fever HEMATOLOGY & COAGULATION: Monitor H&H. Keep Hgb > 7 Transfuse 1 unit of PRBC for Hgb < 7 Transfuse 1 pack of platelets of platelets < 20, 000 Watch for any signs and symptoms of bleeding SKIN: Pressure ulcer prevention per facility protocol Specialty mattress as needed Treatment plan discussed with patient and family at the bedside Medications to be reconciled once obtained by patient and/or family and available to be reconciled in computer p.r.n. medication for pain nausea and vomiting Questions were answered We will continue to monitor the patient closely Endocrinology Specialist for disposition Rehab: PT/OT GI: PPI DVT: SCD's Code Status: Full Resuscitation Disposition: TBD Prognosis: Guarded ] ATTESTATION BY PHYSICIAN I have seen and examined the patient. I reviewed the documentation, medical decision making, and treatment plan as noted by the mid-level provider above. I agree with the findings and plan of care. MD JARRELL Corrales [facility]NA [facility] Sep 21, 2024 11:20
[2024-09-21] MEDS ORDERED: IpraTROPium/alBUTERol SULFATE 3 ML SOLUTION IH SCH (12:00)
[2024-09-21 12:06] LABS: ABG HCO3 18.8 mmol/L (21.0-28.0); ABG PCO2 32 mmHg (35-48); ABG PH 7.388 (7.350-7.450); PO2, ARTERIAL BG 91.2 mmHg (83.0-108.0); VENT MODE, BG BIPAP 12-6 (ROOM AIR)
--- NOTE | 2024-09-21 12:12 | NUR ---
ATTEMPT TO CALL REPORT X2
--- NOTE | 2024-09-21 13:30 | NUR ---
Per nuclear med, vq scan unable to be compelted due to bipap equipment
[2024-09-21 13:42] LABS: APPEARANCE,URINE CLEAR (CLEAR); BILIRUBIN,URINE NEGATIVE (NEGATIVE); COLOR,URINE LIGHT-YELLOW (YELLOW); GLUCOSE, URINE (UA) >=1000 mg/dL (NEGATIVE); KETONES,URINE NEGATIVE (NEGATIVE); LEUKOCYTE ESTERASE ,URINE NEGATIVE Leu/uL (NEGATIVE); NITRATE,URINE NEGATIVE (NEGATIVE); OCCULT BLOOD,URINE NEGATIVE (NEGATIVE); PROTEIN,URINE 30 mg/dL (NEGATIVE); UROBILINOGEN,URINE 0.2 mg/dL (0.2-1.0)
[2024-09-21 13:45] LABS: MUCUS,URINE RARE LPF (None Seen); RBC,URINE 0-1 /HPF (0-1); WBC,URINE 0-1 /HPF (0-1)
[2024-09-21] MEDS: ceFEPime HCL 2 GM VIAL IVPB SCH (14:23)
[2024-09-21] MEDS: Solu-medROL 40MG VIAL IVP SCH (14:23)
[2024-09-21] MEDS: ZOLPidem TARTrate 5 MG TAB PO PRN (19:30)
--- NOTE | 2024-09-21 21:50 | NUR ---
REPORT GIVEN TO SOILA NELSON
--- NOTE | 2024-09-21 22:00 | NUR ---
PT ARRIVED TO ROOM 227 VIA ER STRETCHER PT ,DOES NOT APPEAR TO BE IN ANY DISTRESS.ORIENTATED PT TO ROOM .INSTRUCTED PT TO USE THE CALL LIGHT FOR ANY ASSISTANCE WHEN NEEDED.PT UNDERSTOOD BED IS LOW AND LOCKED CALL LIGHT WITHIN REACH . PTS BELONGINGS PLACED IN THE CLOSET UNDER THE TV IN ROOM 227.PT KEPT HIS CELLPHONE AT HIS BEDSIDE TABLE .
[2024-09-22] VITALS (17 sets, daily range): BP systolic 91–148; BP diastolic 48–80; PULSE 62–81; RESP 18–22; TEMP 97.6–98.6; O2SAT 96–99
[2024-09-22 03:57] LABS: BASOPHILS # (AUTO) 0.03 K/uL (0.00-0.20); BASOPHILS % (AUTO) 0.4 % (0.0-5.0); HEMATOCRIT 33.2 % (42-54); IMMATURE GRANULOCYTE ABSOLUTE 0.04 K/uL (0-1); LYMPHOCYTES % (AUTO) 13.2 % (21.0-51.0); MEAN CORPUSCULAR HEMOGLOBIN 22.4 pg (27.0-33.0); MEAN CORPUSCULAR HGB CONC 30.4 g/dL (32.0-36.0); MEAN CORPUSCULAR VOLUME 73.8 fL (79-99); MONOCYTES # (AUTO) 0.1 K/uL (0.1-1.0); MONOCYTES % (AUTO) 1.8 % (3.0-13.0); NEUTROPHILS # (AUTO) 6.1 K/uL (1.8-7.7); NEUTROPHILS % (AUTO) 84.1 % (40.0-77.0); PLATELET COUNT (AUTO) 224 K/uL (130-400); RED CELL DISTRIBUTION WIDTH 17.2 % (11.0-15.5); WHITE BLOOD COUNT (AUTO) 7.3 K/uL (4.8-10.8)
[2024-09-22 04:01] LABS: ALBUMIN 3.3 g/dL (3.5-5.0); BILIRUBIN,DIRECT 0.2 mg/dL (0.0-0.3); BILIRUBIN,TOTAL 0.6 mg/dL (0.2-1.0); CREATININE 1.6 mg/dL (0.5-1.3); MAGNESIUM 2.3 mg/dL (1.80-2.40); POTASSIUM 3.8 mmol/L (3.5-5.1); TOTAL PROTEIN, SERUM 6.5 g/dL (6.0-8.3)
--- NOTE | 2024-09-22 06:27 | NUR ---
PER FREDDIE FROM NUCLEAR MED ,PTS VQ SCAN ON HOLD PER PT IS ON BIPAP.
--- NOTE | 2024-09-22 06:28 | NUR ---
RAD NUCLEAR MEDICINE SPOKE TO NURSE CM AT 0628 HOURS, PATIENT IS ON BIPAP. V/Q SCAN WILL BE PLACED ON HOLD. PATIENT NEEDS TO BE OFF BIPAP IN ORDER TO PERFORM V/Q SCAN.
--- NOTE | 2024-09-22 11:54 | PN ---
[facility] PROGRESS NOTE Date of Service: Sep 22, 2024 Time of Service: 11:[address] Abreu SUBJECTIVE: [ 09/21 [Patient is 79 years old male with a past medical history of COPD, hyperlipidemia, hypertension, pacemaker, AFib, diabetes, CYRUS, CHF diastolic d ysfunction, who came to emergency department via EMS with a increased shortness of breaths and respiratory distress for about 2 hours. Patient was just recently admitted and then discharged from [facility] between 09/10 and 09/13 with same complaint. ] EMS reported that he was in moderate distress and they placed him on O2, gave albuterol nebulizer treatment prior to arrival in the ER. Patient appeared to be in moderate distress, speaks in broken sentences. No diaphoresis. Patient was recently treated with antibiotic therapy and steroids. No recent travel or new pets at home. He reports progressively getting worse with reduced exercise tolerance over the years. He admits to cough with very scant amounts of sputum if any. No hemoptysis. Patient has never been intubated in the past. A stat ABG was obtained which showed a pH of 7.36 pCO2 of 35 PO2 of 93 on FiO2 of 100% Most recent vital signs include temperature 98.1 pulse 84 respiration 28 blood pressure 137/67. Patient is on BiPAP FiO2 30%. WBC 12.2 hemoglobin 10.9 hematocrit 36.8 platelets 223. Sodium 138 potassium 3.5 CO2 28 creatinine 1.5 BUN 25 GFR 136 calcium 8.8 CK 147 troponin negative x1 BNP 519 lactic acid 1.9. 09/21/2024 chest x-ray shows stable exam. 09/21/2024 CT chest showed right- sided pneumonia bilateral pleural effusions. We will consult receiving dock checker for further evaluation/recommendations. 09/22 patient was seen by nurse practitioner and physician during rounding in room 227 comfortably lying in the bed. WBC 7.3. Patient continues on 2 L nasal cannula. No home O2 supplements at home. Prior discharge we will request 6 minute walk. Patient continues to be on Rocephin, methylprednisolone 40 mg q.6 hours furosemide 40 mg b.i.d. pulmonology is following the patient. We are still pending final blood and sputum culture. Patient is pending V/Q scan for elevated D-dimer of 601. We will continue to monitor patient in the meantime. A.m. labs.] REVIEW OF SYSTEMS CONSTITUTIONAL: Denies fevers, chills, or night sweats. No unintentional weight loss reported. NEUROLOGICAL: Denies headache, amaurosis fugax, motor weakness, sensory deficit, vertigo/spinning sensation, gait abnormalities, or tremors. ENT: No hearing loss, otalgia, otorrhea, rhinitis, rhinorrhea, hoarseness, or sore throat. CARDIOVASCULAR: Denies any exertional angina, dyspnea on exertion, orthopnea, paroxysmal nocturnal dyspnea, palpitations, life-threatening arrhythmias, claudication. PULMONARY: Denies any cough, phlegm/sputum, hemoptysis, pleuritic chest pain. SLEEP: Denies morning headaches, daytime somnolence or napping. Denies difficulty falling asleep, staying asleep, waking from sleep. Denies knowledge of snoring. Complains of shortness of breaths GASTROINTESTINAL: Denies any type of dysphagia to either liquids or solids. Denies nausea, vomiting, pyrosis, early satiety, abdominal pain, diarrhea, constipation, or changes in stool consistency or caliber. Denies coffee-ground emesis, hematemesis, hematochezia, or melanotic stools. GENITOURINARY: Denies frequency, urgency, nocturia, hematuria or incontinence (Storage/Irritative symptoms.) Low urinary stream, straining to void, urinary intermittency or hesitancy, splitting of the voiding stream, terminal dribbling. ENDOCRINOLOGIC: Denies polyuria, polydipsia, polyphagia or heat/cold intolerances. HEMATOLOGIC: Denies thrombophilia/previous clots, or coagulopathy/bleeding disorders. ONCOLOGIC: Denies personal history of malignancy. DERMATOLOGIC: Denies rashes or pruritus. PSYCHIATRIC: Denies any suicidal or homicidal ideation. Denies hallucinations. PHYSICAL EXAM GENERAL APPEARANCE: The patient is awake, alert, and oriented, in no acute cardiopulmonary distress. NEUROLOGICAL: Cranial nerves II-XII grossly intact. Motor is 5/5 in bilateral upper and lower extremities proximal to distal. No sensory deficits. HEENT: Face is symmetric. Pupils are equal and reactive. Extraocular movements are intact. NECK: Supple. No JVD. No thyromegaly. No submental, submandibular, pre-/p ostauricular, occipital or supraclavicular lymphadenopathy. CHEST: Normal chest expansion. No Telemetry. LUNGS: Absence of any rales, rhonchi or any wheezing. CARDIOVASCULAR: Regular. S1 and S2 normal. No appreciable rubs, murmurs or gallops. ABDOMEN: Soft, nontender, and nondistended. There is no rebound, voluntary guarding, or rigidity. : Deferred. No [place]. EXTREMITIES: Non-edematous and not cyanotic. No clubbing. Good capillary refill. SKIN: No skin breakdown. Vital Signs (last 8hr) Date Time Temp Pulse Resp B/P (MAP) Pulse Ox O2 Delivery O2 Flow Rate FiO2 09/22/24 10:43 78 18 09/22/24 09:35 99 Nasal Cannula* 2 28 09/22/24 07:37 78 18 09/22/24 07:12 97.9 68 18 129/74 99 BIPAP 09/22/24 04:00 97.9 62 18 131/80 98 BIPAP LABS: Laboratory: Test 09/22/24 03:12 09/21/24 13:02 09/21/24 12:04 09/21/24 03:25 Range/Units White Blood Count 7.3 # 4.8-10.8 K/uL Red Blood Count 4.50 4.50-6.20 MIL/uL Hemoglobin 10.1 L 14.0-18.0 g/dL Hematocrit 33.2 L 42-54 % Mean Corpuscular Volume 73.8 L 79-99 fL Mean Corpuscular Hemoglobin 22.4 L 27.0-33.0 pg Mean Corpuscular Hemoglobin Concent 30.4 L 32.0-36.0 g/dL Red Cell Distribution Width 17.2 H 11.0-15.5 % Platelet Count 224 130-400 K/uL Mean Platelet Volume 9.6 7.5-10.5 fL Immature Granulocyte % (Auto) 0.5 0-1 % Neutrophils (%) (Auto) 84.1 H 40.0-77.0 % Lymphocytes (%) (Auto) 13.2 L 21.0-51.0 % Monocytes (%) (Auto) 1.8 L 3.0-13.0 % Eosinophils (%) (Auto) 0.0 0.0-8.0 % Basophils (%) (Auto) 0.4 0.0-5.0 % Neutrophils # (Auto) 6.1 1.8-7.7 K/uL Lymphocytes # (Auto) 1.0 1.0-4.8 K/uL Monocytes # (Auto) 0.1 0.1-1.0 K/uL Eosinophils # (Auto) 0.00 0.00-0.70 K/uL Basophils # (Auto) 0.03 0.00-0.20 K/uL Absolute Immature Granulocyte (auto 0.04 0-1 K/uL Nucleated Red Blood Cells 0.0 0.0-0.19 % Sodium Level 138 136-145 mmol/L Potassium Level 3.8 3.5-5.1 mmol/L Chloride Level 102 101-111 mmol/L Carbon Dioxide Level 25 21-32 mmol/L Blood Urea Nitrogen 39 H 7-18 mg/dL Creatinine 1.6 H 0.5-1.3 mg/dL Glomerular Filtration Rate Calc 44 >90 mL/min Random Glucose 257 #H 70-105 mg/dL Lactic Acid Level 1.9 0.8-2.5 mmol/L Total Calcium 8.5 8.5-10.1 mg/dL Magnesium Level 2.30 1.80-2.40 mg/dL Total Bilirubin 0.6 0.2-1.0 mg/dL Direct Bilirubin 0.2 0.0-0.3 mg/dL Aspartate Amino Transf (AST/SGOT) 20 10-37 U/L Alanine Aminotransferase (ALT/SGPT) 23 12-78 U/L Alkaline Phosphatase 113 50-136 U/L Ammonia 12 11-32 umol/L Total Creatine Kinase 114 # 21-232 U/L Troponin I High Sensitivity 18.0 4-75 ng/L B-Type Natriuretic Peptide 514 H 0-100 pg/mL Total Protein 6.5 6.0-8.3 g/dL Albumin 3.3 L 3.5-5.0 g/dL Procalcitonin 0.30 0.05-0.5 ng/mL Urine Color LIGHT-YELLOW YELLOW Urine Appearance CLEAR CLEAR Urine pH 5.0 5.0-8.0 Urine Specific [place] 1.016 1.001-1.031 Urine Protein 30 H NEGATIVE mg/dL Urine Glucose (UA) >=1000 H NEGATIVE mg/dL Urine Ketones NEGATIVE NEGATIVE mg/dL Urine Occult Blood NEGATIVE NEGATIVE Urine Nitrate NEGATIVE NEGATIVE Urine Bilirubin NEGATIVE NEGATIVE mg/dL Urine Urobilinogen 0.2 0.2-1.0 mg/dL Urine Leukocyte Esterase NEGATIVE NEGATIVE Aisha/uL Urine RBC 0-1 0-1 /HPF Urine WBC 0-1 0-1 /HPF Urine Bacteria None None Seen /HPF Urine Hyaline Casts 2-5 H 0-1 /LPF /LPF Blood Gas Specimen Type Arterial Arterial Blood pH 7.388 7.350-7.450 Arterial Blood Partial Pressure CO2 32 L 35-48 mmHg Arterial Blood Partial Pressure O2 91.2 83.0-108.0 mmHg Arterial Blood HCO3 18.8 L 21.0-28.0 mmol/L Arterial Blood Oxygen Saturation 97.0 94.0-98.0 % Arterial Blood Base Excess -5.0 L -2.0-3.0 mmol/L Blood Gas Temperature 37.0 35.5-37.0 CELSIUS Blood Gas Respiration Rate 18.0 min. Blood Gas Vent Mode BIPAP 12-6 ROOM AIR FiO2 40.0 % Blood Gas Specimen Comment RR,GRACIELA-RN Influenza Type A Antigen Negative For Type A NEGATIVE Influenza Type B Antigen Negative For Type B NEGATIVE SARS-CoV-2, RNA, NAAT NEGATIVE SARS CoV-2 NEGATIVE Test 09/21/24 03:15 09/21/24 03:12 Range/Units Red Blood Cell Morphology See comments D-Dimer Quantitative (PE/DVT) 601 *H 0-500 ng/mL Hemoglobin (Blood Gas) 10.7 L 13.5-17.5 g/dL Sodium (Blood Gas) 136 136-145 MMOL/L Bedside Potassium (Blood Gas) 3.7 3.4-4.5 MMOL/L Bedside Chloride (Blood Gas) 102 98-107 MMOL/L Bedside Glucose (Blood Gas) 123 H 65-95 MG/DL Bedside Ionized Calcium (Blood Gas) 1.18 1.15-1.33 MMOL/L Bedside Lactic Acid (Blood Gas) 0.87 H 0.36-0.75 MMOL/L Blood Gas Flow-by 15.00 0.00-15.00 L/min Current Medications Medications (Trade) Dose Ordered Sig/Rachelle Route PRN Reason Start Time Stop Time Status Last Admin Dose Admin Acetaminophen (TYLenol 325MG TAB) 650 mg Q4H PRN PO MILD PAIN (1-3) 09/21/24 06:30 10/21/24 06:29 Acetaminophen (TYLenol 325MG TAB) 650 mg Q6H PRN PO TEMPERATURE GREATER THAN 101.5 12/15/24 06:30 10/21/24 06:29 Al Hydroxide/Mg Hydroxide (MAALox PLUS 30ML) 30 ml Q6H PRN PO INDIGESTION 09/21/24 06:30 10/21/24 06:29 Albuterol (DUOneb) 1 udvial [id number] IH 09/21/24 12:00 09/21/24 07:31 DC Albuterol Sulfate (Proventil 0.083% 2.5mg/3ml) 2.5 mg [id number] PRN IH RESPIRATORY SYMPTOMS 09/21/24 06:30 10/21/24 06:29 09/21/24 07:21 2.5 MG Albuterol Sulfate (Proventil 0.083% 2.5mg/3ml) 2.5 mg [id number] PRN IH RESPIRATORY SYMPTOMS 09/21/24 07:00 09/21/24 06:40 DC Albuterol Sulfate (Proventil 0.083% 2.5mg/3ml) 2.5 mg [id number] IH 09/21/24 10:00 10/21/24 09:59 09/22/24 10:43 2.5 MG Amlodipine Besylate (NorvASC 5MG TAB) 5 mg DAILY PO 09/21/24 09:00 10/21/24 08:59 09/22/24 09:40 5 MG Aspirin (Aspirin 81mg Chew Tab) 81 mg DAILY PO 09/21/24 09:00 10/21/24 08:59 09/22/24 09:39 81 MG Aspirin (Aspirin 81mg Ec Tab) 81 mg DAILY PO 09/21/24 09:00 09/21/24 06:30 DC Atorvastatin Calcium (LIPItor 40MG) 40 mg DAILY PO 09/21/24 09:00 10/21/24 08:59 09/22/24 09:40 40 MG Benzocaine (Cepacol Sore Throat Lozenge) 1 each Q2H PRN MM SORE THROAT 09/21/24 07:00 10/21/24 06:59 Cefepime HCl (MAXipime 2 gm vial) 2 gm Q12H IVPB 09/21/24 14:30 10/01/24 14:29 09/22/24 03:26 2 GM Dextrose (D50w) 50 ml AD PRN IV HYPOGLYCEMIA PROTOCOL 09/21/24 06:30 10/21/24 06:29 Diphenhydramine HCl (BENAdryl CAP) 25 mg Q4H PRN PO MILD ITCHING/RASH 09/21/24 07:00 10/21/24 06:59 09/21/24 06:45 25 MG Diphenhydramine HCl (BENAdryl INJ) 25 mg Q6H PRN IV SEVERE ITCHING/RASH 09/21/24 06:30 10/21/24 06:29 Doxycycline Hyclate 250 ml @ 125 mls/hr Q12H IV 09/21/24 07:00 10/01/24 06:59 09/22/24 06:45 125 MLS/HR Famotidine (Pepcid 20mg Vial) 20 mg BID IV 09/21/24 09:00 09/21/24 06:40 DC Famotidine (Pepcid 20mg Vial) 20 mg Q24H IV 09/21/24 09:00 10/21/24 08:59 09/22/24 09:40 20 MG Furosemide (LASix 20MG TAB) 20 mg DAILY PO 09/21/24 09:00 09/21/24 10:32 DC 09/21/24 08:06 20 MG Furosemide (LASix 40MG VIAL) 40 mg Q12H IV 09/21/24 11:00 10/21/24 10:59 09/22/24 09:40 40 MG Glucagon (Glucagon 1mg Kit) 1 mg AD PRN IM HYPOGLYCEMIA PROTOCOL 09/21/24 06:30 10/21/24 06:29 Guaifenesin (RobiTUSSin SUGAR-FREE 100 MG/ 5 ML UDCUP) 200 mg Q4H PRN PO COUGH 09/21/24 07:00 10/21/24 06:59 Guaifenesin/ Dextromethorphan (RobiTUSSin DM 200/20MG 10ML) 10 ml Q4H PRN PO COUGH 09/21/24 06:30 10/21/24 06:29 Home Med (Home Medication) DAILY PO 09/21/24 09:00 10/21/24 08:59 09/22/24 09:44 1 EACH Lactulose (Constulose 20gm/ 30ml Udcup) 20 gm BID PRN PO CONSTIPATION 09/21/24 06:30 10/21/24 06:29 Magnesium Sulfate 50 ml @ 0 mls/hr PROTOCOL PRN IV other 09/21/24 06:30 10/21/24 06:29 Methylprednisolone Sodium Succinate (Solu-medROL 40MG) 40 mg Q6H IVP 09/21/24 14:30 10/21/24 14:29 09/22/24 10:14 40 MG Nitroglycerin (Nitrostat) 0.4 mg PROTOCOL PRN SL CHEST PAIN 09/21/24 06:30 10/21/24 06:29 Ondansetron HCl (zoFRAN 4MG INJ) 4 mg Q6H PRN IV NAUSEA/VOMITING 09/21/24 06:30 10/21/24 06:29 Polyethylene Glycol (MIRalax 3350 17 GM POWD.PACK) 17 gm DAILY PRN PO CONSTIPATION 09/21/24 07:00 10/21/24 06:59 Zolpidem Tartrate (AmbIEN) 5 mg HS PRN PO INSOMNIA 09/21/24 06:30 10/21/24 06:29 09/21/24 19:30 5 MG DIAGNOSTICS / RADIOLOGY: [ ] ASSESSMENT: [ COPD exacerbation POA Acute on chronic hypoxic respiratory failure requiring BiPAP POA Uncontrolled hypertension POA 07/18/2024 2D echo EF more than 70% stage III diastolic dysfunction] Hyperlipidemia Uncontrolled diabetes mellitus type 2 with hypoglycemia POA Acute on chronic kidney injury POA ] 09/21/2024 CT chest right-sided pneumonia, possible aspiration PNA 09/21/2024 CT chest bilateral pleural effusions PLAN: [ Admit to: Medical-surgical floor with tele Consults: Propagation Worker Antibiotics: Doxycycline Tests: V/Q scan and 6 min walk prior dc NEURO: Minimize central acting medications as possible. Fall Precautions. Well lighted room through the day and minimize interruptions through the night to prevent acute delirium. PULMONARY: Supplemental 02 as needed BiPAP as necessary, for respiratory distress Titrate Fio2 to keep Spo2 > or = 90% DuoNebs and CPT as needed IS hourly while awake for pulmonary hygiene Out of bed to chair as tolerated VAP Bundle Maintain aspiration precautions at all times CARDIOVASCULAR: Follow hemodynamics. Vital signs per facility protocol GI & NUTRITION: Continue nutritional support Aspirations precautions Prokinetic agents and laxatives as needed KIDNEYS & ELECTROLYTES: Strict monitoring of intake and output Daily weights Avoid nephrotoxic agents Monitor electrolytes and replace as needed Goal urine output of 30mL/hr or 0.5mL/kg/hr Medications to be dosed according to renal function. Avoid contrast if possible ENDOCRINE: Maintain blood glucose between 100-180 at all times. Insulin sliding scale for blood glucose management Hypoglycemia and hyperglycemia protocol in place INFECTIOUS DISEASE: Trend temperature, WBC and procalcitonin level Follow cultures, deescalate antibiotics as soon as possible. Panculture if new onset fever HEMATOLOGY & COAGULATION: Monitor H&H. Keep Hgb > 7 Transfuse 1 unit of PRBC for Hgb < 7 Transfuse 1 pack of platelets of platelets < 20, 000 Watch for any signs and symptoms of bleeding SKIN: Pressure ulcer prevention per facility protocol Specialty mattress as needed Treatment plan discussed with patient and family at the bedside Medications to be reconciled once obtained by patient and/or family and avai lable to be reconciled in computer p.r.n. medication for pain nausea and vomiting Questions were answered We will continue to monitor the patient closely Housekeeper Nanny for disposition Rehab: PT/OT GI: PPI DVT: SCD's Code Status: Full Resuscitation Disposition: TBD Prognosis: Guarded ] ATTESTATION BY PHYSICIAN I have seen and examined the patient. I reviewed the documentation, medical decision making, and treatment plan as noted by the mid-level provider above. I agree with the findings and plan of care. JULI ABREU MD, [facility] Sep 22, 2024 11:54
--- NOTE | 2024-09-22 13:55 | HMCIMG ---
CHEST 1VW HISTORY: For VQ scan COMPARISON: 09/21/2024 FINDINGS: A frontal projection of the chest was obtained. Mild bilateral pulmonary infiltrates are seen may be related to mild pulmonary vascular congestion with possible superimposed pneumonitis. The heart is borderline enlarged. All the lines and tubes are again seen in place. No evidence of aortic calcification is seen. IMPRESSION: 1. Mild bilateral pulmonary infiltrates are seen may be related to mild pulmonary vascular congestion with possible superimposed pneumonitis.
[2024-09-22] MEDS ORDERED: PHARMACY COMMUNICATION MISC SCH (14:30)
--- NOTE | 2024-09-22 20:56 | NUR ---
PT LAYING IN BED WITH THE HEAD OF THE BED ELEVATED.PT DOES NOT APPEAR TO BE IN ANY DISTRESS,INSTRUCTED PT TO USE THE CALL LIGHT FOR ANY ASSISTANCE WHEN NEEDED. PT UNDERSTOOD BED IS LOW AND LOCKED CALL LIGHT WITHIN REACH .
--- NOTE | 2024-09-22 21:41 | PN ---
[facility] PROGRESS NOTE Date Patient Seen: Sep 22, 2024 Time of Visit: 21:38 Supervising Physician: RAKESH CALZADA MD Attending Physician: Hospitalist Team Primary Care Physician: Dr. Cheko Kincaid PROBLEM LIST: Acute on chronic hypoxemic respiratory failure requiring BiPAP on admission Acute COPD exacerbation Acute diastolic CHF exacerbation, EF 70 % Right sided pneumonia Uncontrolled hypertension Dyslipidemia Diabetes Mellitus, type II INTERVAL HISTORY: 09/22 [Patient is 79 years old and currently on supplemental oxygen via nasal cannula at 2 L No fevers, no chills Patient complains of cough with phlegm, no hemoptysis Patient on BiPAP overnight, slept well Pending cultures, no chills, no fevers Good appetite, no constipation Maintains good urinary output ] REVIEW OF SYSTEMS: 12 point ROS reviewed with patient. Pertinent positives mentioned above. Otherwise negative. PHYSICAL EXAM: GENERAL: alert, weak, awake oriented x 3, in moderate respiratory distress, on Bipap support HEENT: EOMI, Sclera non icteric, moist mucosa NECK: Supple, no JVD, trachea midline LUNGS: No wheezing, decreased air entry at the bases bilaterally HEART: Regular rate and rhythm. Normal S1 and S2, without murmurs ABD: Abdomen soft, nontender. Bowel sounds present EXT: No clubbing cyanosis or edema NEURO: Alert and oriented to person, follows commands Vital Signs (last 8hr) Date Time Temp Pulse Resp B/P (MAP) Pulse Ox O2 Delivery O2 Flow Rate FiO2 09/22/24 19:46 98.6 64 18 144/75 96 Room Air 09/22/24 18:42 67 18 N/Cannula Low lpm 2.0 28 09/22/24 18:40 65 18 09/22/24 16:00 97.5 65 19 128/77 93 Nasal Cannula 2.0 LABS: Hematology Labs: Test 09/22/24 03:12 09/21/24 03:15 Range/Units White Blood Count 7.3 # 4.8-10.8 K/uL Red Blood Count 4.50 4.50-6.20 MIL/uL Hemoglobin 10.1 L 14.0-18.0 g/dL Hematocrit 33.2 L 42-54 % Mean Corpuscular Volume 73.8 L 79-99 fL Mean Corpuscular Hemoglobin 22.4 L 27.0-33.0 pg Mean Corpuscular Hemoglobin Concent 30.4 L 32.0-36.0 g/dL Red Cell Distribution Width 17.2 H 11.0-15.5 % Platelet Count 224 130-400 K/uL Mean Platelet Volume 9.6 7.5-10.5 fL Immature Granulocyte % (Auto) 0.5 0-1 % Neutrophils (%) (Auto) 84.1 H 40.0-77.0 % Lymphocytes (%) (Auto) 13.2 L 21.0-51.0 % Monocytes (%) (Auto) 1.8 L 3.0-13.0 % Eosinophils (%) (Auto) 0.0 0.0-8.0 % Basophils (%) (Auto) 0.4 0.0-5.0 % Neutrophils # (Auto) 6.1 1.8-7.7 K/uL Lymphocytes # (Auto) 1.0 1.0-4.8 K/uL Monocytes # (Auto) 0.1 0.1-1.0 K/uL Eosinophils # (Auto) 0.00 0.00-0.70 K/uL Basophils # (Auto) 0.03 0.00-0.20 K/uL Absolute Immature Granulocyte (auto 0.04 0-1 K/uL Nucleated Red Blood Cells 0.0 0.0-0.19 % Red Blood Cell Morphology See comments Chemistry Labs: Test 09/22/24 03:12 Range/Units Sodium Level 138 136-145 mmol/L Potassium Level 3.8 3.5-5.1 mmol/L Chloride Level 102 101-111 mmol/L Carbon Dioxide Level 25 21-32 mmol/L Blood Urea Nitrogen 39 H 7-18 mg/dL Creatinine 1.6 H 0.5-1.3 mg/dL Glomerular Filtration Rate Calc 44 >90 mL/min Random Glucose 257 #H 70-105 mg/dL Lactic Acid Level 1.9 0.8-2.5 mmol/L Total Calcium 8.5 8.5-10.1 mg/dL Magnesium Level 2.30 1.80-2.40 mg/dL Total Bilirubin 0.6 0.2-1.0 mg/dL Direct Bilirubin 0.2 0.0-0.3 mg/dL Aspartate Amino Transf (AST/SGOT) 20 10-37 U/L Alanine Aminotransferase (ALT/SGPT) 23 12-78 U/L Alkaline Phosphatase 113 50-136 U/L Ammonia 12 11-32 umol/L Total Creatine Kinase 114 # 21-232 U/L Troponin I High Sensitivity 18.0 4-75 ng/L B-Type Natriuretic Peptide 514 H 0-100 pg/mL Total Protein 6.5 6.0-8.3 g/dL Albumin 3.3 L 3.5-5.0 g/dL Procalcitonin 0.30 0.05-0.5 ng/mL Coagulation Labs: Test 09/21/24 03:15 Range/Units D-Dimer Quantitative (PE/DVT) 601 *H 0-500 ng/mL DIAGNOSTICS / RADIOLOGY RESULTS: [ Imaging scans reviewed] Plan: Continue inpatient medical management Follow results from cultures Continue IV antibiotics Continue IV steroids Continue use of BiPAP with current settings as instructed to respiratory therapist Up and ambulatory ad vito Aspiration precautions Aerosol nebulizer treatments Chest physical therapy Peptic ulcer disease prophylaxis DVT prophylaxis Long-term prognosis remains guarded, we will follow closely Total time spent with patient: 35 minutes ATTESTATION BY PHYSICIAN Clinical note scribed by my clinical specialist medical device, I attest to the Clinical accuracy of note. Rakesh Calzada MD I personally scribed for RAKESH CALZADA MD ([email or web address]) on 09/22/24 at 21:41. Electronically submitted by Ivan Wong ([email or web address]). RAKESH CALZADA MD Sep 22, 2024 21:41
[2024-09-23] VITALS (16 sets, daily range): BP systolic 111–150; BP diastolic 60–85; PULSE 65–75; RESP 18–21; TEMP 97.4–98.8; O2SAT 96–99
[2024-09-23 03:59] LABS: HEMATOCRIT 35.1 % (42-54); IMMATURE GRANULOCYTE ABSOLUTE 0.05 K/uL (0-1); LYMPHOCYTES # (AUTO) 0.5 K/uL (1.0-4.8); LYMPHOCYTES % (AUTO) 6.6 % (21.0-51.0); MEAN CORPUSCULAR HEMOGLOBIN 22.6 pg (27.0-33.0); MEAN CORPUSCULAR HGB CONC 30.8 g/dL (32.0-36.0); MEAN CORPUSCULAR VOLUME 73.6 fL (79-99); MONOCYTES # (AUTO) 0.2 K/uL (0.1-1.0); MONOCYTES % (AUTO) 2.6 % (3.0-13.0); NEUTROPHILS # (AUTO) 7.3 K/uL (1.8-7.7); NEUTROPHILS % (AUTO) 90.2 % (40.0-77.0); PLATELET COUNT (AUTO) 237 K/uL (130-400); RED BLOOD CELL COUNT(AUTO) 4.77 MIL/uL (4.50-6.20); RED CELL DISTRIBUTION WIDTH 17.1 % (11.0-15.5); WHITE BLOOD COUNT (AUTO) 8.1 K/uL (4.8-10.8)
[2024-09-23 04:24] LABS: ALBUMIN 3.4 g/dL (3.5-5.0); BILIRUBIN,TOTAL 0.7 mg/dL (0.2-1.0); CREATININE 1.7 mg/dL (0.5-1.3); MAGNESIUM 2.4 mg/dL (1.80-2.40); TOTAL PROTEIN, SERUM 6.7 g/dL (6.0-8.3)
--- NOTE | 2024-09-23 04:50 | NUR ---
PAGED PERSON STEAM TURBINE ASSEMBLER FOR HOSPITALIST REGARDING PTS GLUCOSE LAB RESULT OF 520,AND FINGERSTICK GLUCOSE CHECK RESULT OF 486. CALL BACK FROM VIBHA [facility] [employer] MANAGER ,UPDATED HER ON PTS GLUCOSE LAB RESULT OF 520,AND GLUCOSE FINGERSTICK RESULT OF 486. PER VIBHA SWIFT ORDER INSULIN SLIDING SCALE NUMBER 1 Q4H ,AND ORDER A HEMOGLOBIN A1C LAB .
[2024-09-23] MEDS: INSULIN humuLIN R 100 UNIT/ML 3ML SQ SCH ×2 (06:35→13:01)
--- NOTE | 2024-09-23 09:05 | PN ---
[facility] PROGRESS NOTE Date of Service: Sep 23, 2024 Time of Service: 09:05 SUBJECTIVE: [ 09/21 [Patient is 79 years old male with a past medical history of COPD, hyperlipidemia, hypertension, pacemaker, AFib, diabetes, CYRUS, CHF diastolic dysfunction, who came to emergency department via EMS with a increased shortness of breaths and respiratory distress for about 2 hours. Patient was just recently admitted and then discharged from [facility] between 09/10 and 09/13 with same complaint. ] EMS reported that he was in moderate distress and they placed him on O2, gave albuterol nebulizer treatment prior to arrival in the ER. Patient appeared to be in moderate distress, speaks in broken sentences. No diaphoresis. Patient was recently treated with antibiotic therapy and steroids. No recent travel or new pets at home. He reports progressively getting worse with reduced exercise tolerance over the years. He admits to cough with very scant amounts of sputum if any. No hemoptysis. Patient has never been intubated in the past. A stat ABG was obtained which showed a pH of 7.36 pCO2 of 35 PO2 of 93 on FiO2 of 100% Most recent vital signs include temperature 98.1 pulse 84 respiration 28 blood pressure 137/67. Patient is on BiPAP FiO2 30%. WBC 12.2 hemoglobin 10.9 hematocrit 36.8 platelets 223. Sodium 138 potassium 3.5 CO2 28 creatinine 1.5 BUN 25 GFR 136 calcium 8.8 CK 147 troponin negative x1 BNP 519 lactic acid 1.9. 09/21/2024 chest x-ray shows stable exam. 09/21/2024 CT chest showed right- sided pneumonia bilateral pleural effusions. We will consult senior software engineer analytics for further evaluation/recommendations. 09/22 patient was seen by nurse practitioner and physician during rounding in room 227 comfortably lying in the bed. WBC 7.3. Patient continues on 2 L nasal cannula. No home O2 supplements at home. Prior discharge we will request 6 minute walk. Patient continues to be on Rocephin, methylprednisolone 40 mg q.6 hours furosemide 40 mg b.i.d. pulmonology is following the patient. We are still pending final blood and sputum culture. Patient is pending V/Q scan for elevated D-dimer of 601. We will continue to monitor patient in the meantime. A.m. labs. 09/23 patient was evaluated this morning, he is comfortable with oxygen supplementation with saturation at 98% on2 L. Patient is able to lay flat. He did have significant hyperglycemia 389 this morning. We will start patient on long acting insulin.] REVIEW OF SYSTEMS CONSTITUTIONAL: Denies fevers, chills, or night sweats. No unintentional weight loss reported. NEUROLOGICAL: Denies headache, amaurosis fugax, motor weakness, sensory deficit, vertigo/spinning sensation, gait abnormalities, or tremors. ENT: No hearing loss, otalgia, otorrhea, rhinitis, rhinorrhea, hoarseness, or sore throat. CARDIOVASCULAR: Denies any exertional angina, dyspnea on exertion, orthopnea, paroxysmal nocturnal dyspnea, palpitations, life-threatening arrhythmias, claudication. PULMONARY: Denies any cough, phlegm/sputum, hemoptysis, pleuritic chest pain. SLEEP: Denies morning headaches, daytime somnolence or napping. Denies difficulty falling asleep, staying asleep, waking from sleep. Denies knowledge of snoring. Complains of shortness of breaths GASTROINTESTINAL: Denies any type of dysphagia to either liquids or solids. Denies nausea, vomiting, pyrosis, early satiety, abdominal pain, diarrhea, constipation, or changes in stool consistency or caliber. Denies coffee-ground emesis, hematemesis, hematochezia, or melanotic stools. GENITOURINARY: Denies frequency, urgency, nocturia, hematuria or incontinence (Storage/Irritative symptoms.) Low urinary stream, straining to void, urinary intermittency or hesitancy, splitting of the voiding stream, terminal dribbling. ENDOCRINOLOGIC: Denies polyuria, polydipsia, polyphagia or heat/cold intolerances. HEMATOLOGIC: Denies thrombophilia/previous clots, or coagulopathy/bleeding disorders. ONCOLOGIC: Denies personal history of malignancy. DERMATOLOGIC: Denies rashes or pruritus. PSYCHIATRIC: Denies any suicidal or homicidal ideation. Denies hallucinations. PHYSICAL EXAM GENERAL APPEARANCE: The patient is awake, alert, and oriented, in no acute cardiopulmonary distress. NEUROLOGICAL: Cranial nerves II-XII grossly intact. Motor is 5/5 in bilateral upper and lower extremities proximal to distal. No sensory deficits. HEENT: Face is symmetric. Pupils are equal and reactive. Extraocular movements are intact. NECK: Supple. No JVD. No thyromegaly. No submental, submandibular, pre- /postauricular, occipital or supraclavicular lymphadenopathy. CHEST: Normal chest expansion. No Telemetry. LUNGS: Absence of any rales, rhonchi or any wheezing. CARDIOVASCULAR: Regular. S1 and S2 normal. No appreciable rubs, murmurs or gallops. ABDOMEN: Soft, nontender, and nondistended. There is no rebound, voluntary guarding, or rigidity. : Deferred. No [place]. EXTREMITIES: Non-edematous and not cyanotic. No clubbing. Good capillary refill. SKIN: No skin breakdown. Vital Signs (last 8hr) Date Time Temp Pulse Resp B/P (MAP) Pulse Ox O2 Delivery O2 Flow Rate FiO2 09/23/24 07:40 98.6 74 18 150/80 98 Nasal Cannula 2.0 09/23/24 04:10 97.3 75 20 150/85 99 BIPAP 09/23/24 02:32 69 18 09/23/24 02:30 69 21 40 LABS: Laboratory: Test 09/23/24 08:19 09/23/24 03:27 09/22/24 03:12 09/21/24 13:02 Range/Units Whole Blood Glucose 366 H 70-110 MG/DL White Blood Count 8.1 4.8-10.8 K/uL Red Blood Count 4.77 4.50-6.20 MIL/uL Hemoglobin 10.8 L 14.0-18.0 g/dL Hematocrit 35.1 L 42-54 % Mean Corpuscular Volume 73.6 L 79-99 fL Mean Corpuscular Hemoglobin 22.6 L 27.0-33.0 pg Mean Corpuscular Hemoglobin Concent 30.8 L 32.0-36.0 g/dL Red Cell Distribution Width 17.1 H 11.0-15.5 % Platelet Count 237 130-400 K/uL Mean Platelet Volume 10.0 7.5-10.5 fL Immature Granulocyte % (Auto) 0.6 0-1 % Neutrophils (%) (Auto) 90.2 H 40.0-77.0 % Lymphocytes (%) (Auto) 6.6 L 21.0-51.0 % Monocytes (%) (Auto) 2.6 L 3.0-13.0 % Eosinophils (%) (Auto) 0.0 0.0-8.0 % Basophils (%) (Auto) 0.0 0.0-5.0 % Neutrophils # (Auto) 7.3 1.8-7.7 K/uL Lymphocytes # (Auto) 0.5 L 1.0-4.8 K/uL Monocytes # (Auto) 0.2 0.1-1.0 K/uL Eosinophils # (Auto) 0.00 0.00-0.70 K/uL Basophils # (Auto) 0.00 0.00-0.20 K/uL Absolute Immature Granulocyte (auto 0.05 0-1 K/uL Nucleated Red Blood Cells 0.0 0.0-0.19 % White Cell Morphology Comment See comments Sodium Level 126 L 136-145 mmol/L Potassium Level 4.0 3.5-5.1 mmol/L Chloride Level 94 L 101-111 mmol/L Carbon Dioxide Level 27 21-32 mmol/L Blood Urea Nitrogen 46 H 7-18 mg/dL Creatinine 1.7 H 0.5-1.3 mg/dL Glomerular Filtration Rate Calc 41 >90 mL/min Random Glucose 520 *H 70-105 mg/dL Total Calcium 8.2 L 8.5-10.1 mg/dL Magnesium Level 2.40 1.80-2.40 mg/dL Total Bilirubin 0.7 0.2-1.0 mg/dL Aspartate Amino Transf (AST/SGOT) 30 10-37 U/L Alanine Aminotransferase (ALT/SGPT) 38 12-78 U/L Alkaline Phosphatase 113 50-136 U/L B-Type Natriuretic Peptide 519 H 0-100 pg/mL Total Protein 6.7 6.0-8.3 g/dL Albumin 3.4 L 3.5-5.0 g/dL Lactic Acid Level 1.9 0.8-2.5 mmol/L Direct Bilirubin 0.2 0.0-0.3 mg/dL Ammonia 12 11-32 umol/L Total Creatine Kinase 114 # 21-232 U/L Troponin I High Sensitivity 18.0 4-75 ng/L Procalcitonin 0.30 0.05-0.5 ng/mL Urine Color LIGHT-YELLOW YELLOW Urine Appearance CLEAR CLEAR Urine pH 5.0 5.0-8.0 Urine Specific [place] 1.016 1.001-1.031 Urine Protein 30 H NEGATIVE mg/dL Urine Glucose (UA) >=1000 H NEGATIVE mg/dL Urine Ketones NEGATIVE NEGATIVE mg/dL Urine Occult Blood NEGATIVE NEGATIVE Urine Nitrate NEGATIVE NEGATIVE Urine Bilirubin NEGATIVE NEGATIVE mg/dL Urine Urobilinogen 0.2 0.2-1.0 mg/dL Urine Leukocyte Esterase NEGATIVE NEGATIVE Aisha/uL Urine RBC 0-1 0-1 /HPF Urine WBC 0-1 0-1 /HPF Urine Bacteria None None Seen /HPF Urine Hyaline Casts 2-5 H 0-1 /LPF /LPF Test 09/21/24 12:04 Range/Units Blood Gas Specimen Type Arterial Arterial Blood pH 7.388 7.350-7.450 Arterial Blood Partial Pressure CO2 32 L 35-48 mmHg Arterial Blood Partial Pressure O2 91.2 83.0-108.0 mmHg Arterial Blood HCO3 18.8 L 21.0-28.0 mmol/L Arterial Blood Oxygen Saturation 97.0 94.0-98.0 % Arterial Blood Base Excess -5.0 L -2.0-3.0 mmol/L Blood Gas Temperature 37.0 35.5-37.0 CELSIUS Blood Gas Respiration Rate 18.0 min. Blood Gas Vent Mode BIPAP 12-6 ROOM AIR FiO2 40.0 % Blood Gas Specimen Comment RR,GRACIELA-RN Current Medications Medications (Trade) Dose Ordered Sig/Rachelle Route PRN Reason Start Time Stop Time Status Last Admin Dose Admin Acetaminophen (TYLenol 325MG TAB) 650 mg Q4H PRN PO MILD PAIN (1-3) 09/21/24 06:30 10/21/24 06:29 Acetaminophen (TYLenol 325MG TAB) 650 mg Q6H PRN PO TEMPERATURE GREATER THAN 101.5 09/21/24 06:30 10/21/24 06:29 Al Hydroxide/Mg Hydroxide (MAALox PLUS 30ML) 30 ml Q6H PRN PO INDIGESTION 09/21/24 06:30 10/21/24 06:29 Albuterol (DUOneb) 1 udvial [id number] IH 09/21/24 12:00 09/21/24 07:31 DC Albuterol Sulfate (Proventil 0.083% 2.5mg/3ml) 2.5 mg [id number] PRN IH RESPIRATORY SYMPTOMS 09/21/24 06:30 10/21/24 06:29 09/21/24 07:21 2.5 MG Albuterol Sulfate (Proventil 0.083% 2.5mg/3ml) 2.5 mg [id number] PRN IH RESPIRATORY SYMPTOMS 09/21/24 07:00 09/21/24 06:40 DC Albuterol Sulfate (Proventil 0.083% 2.5mg/3ml) 2.5 mg [id number] IH 09/21/24 10:00 10/21/24 09:59 09/23/24 07:19 2.5 MG Amlodipine Besylate (NorvASC 5MG TAB) 5 mg DAILY PO 09/21/24 09:00 10/21/24 08:59 09/23/24 08:55 5 MG Aspirin (Aspirin 81mg Chew Tab) 81 mg DAILY PO 09/21/24 09:00 10/21/24 08:59 09/23/24 08:56 81 MG Aspirin (Aspirin 81mg Ec Tab) 81 mg DAILY PO 09/21/24 09:00 09/21/24 06:30 DC Atorvastatin Calcium (LIPItor 40MG) 40 mg DAILY PO 09/21/24 09:00 10/21/24 08:59 09/23/24 08:55 40 MG Benzocaine (Cepacol Sore Throat Lozenge) 1 each Q2H PRN MM SORE THROAT 09/21/24 07:00 10/21/24 06:59 Cefepime HCl (MAXipime 2 gm vial) 2 gm Q12H IVPB 09/21/24 14:30 10/01/24 14:29 09/23/24 03:45 2 GM Dextrose (D50w) 50 ml AD PRN IV HYPOGLYCEMIA PROTOCOL 09/21/24 06:30 10/21/24 06:29 Diphenhydramine HCl (BENAdryl CAP) 25 mg Q4H PRN PO MILD ITCHING/RASH 09/21/24 07:00 10/21/24 06:59 09/21/24 06:45 25 MG Diphenhydramine HCl (BENAdryl INJ) 25 mg Q6H PRN IV SEVERE ITCHING/RASH 09/21/24 06:30 10/21/24 06:29 Doxycycline Hyclate 250 ml @ 125 mls/hr Q12H IV 09/21/24 07:00 10/01/24 06:59 09/23/24 06:32 125 MLS/HR Famotidine (Pepcid 20mg Vial) 20 mg BID IV 09/21/24 09:00 09/21/24 06:40 DC Famotidine (Pepcid 20mg Vial) 20 mg Q24H IV 09/21/24 09:00 10/21/24 08:59 09/23/24 08:58 20 MG Furosemide (LASix 20MG TAB) 20 mg DAILY PO 09/21/24 09:00 09/21/24 10:32 DC 09/21/24 08:06 20 MG Furosemide (LASix 40MG VIAL) 40 mg Q12H IV 09/21/24 11:00 10/21/24 10:59 09/23/24 00:32 40 MG Glucagon (Glucagon 1mg Kit) 1 mg AD PRN IM HYPOGLYCEMIA PROTOCOL 09/21/24 06:30 10/21/24 06:29 Guaifenesin (RobiTUSSin SUGAR-FREE 100 MG/ 5 ML UDCUP) 200 mg Q4H PRN PO COUGH 09/21/24 07:00 10/21/24 06:59 Guaifenesin/ Dextromethorphan (RobiTUSSin DM 200/20MG 10ML) 10 ml Q4H PRN PO COUGH 09/21/24 06:30 10/21/24 06:29 Home Med (Home Medication) DAILY PO 09/21/24 09:00 10/21/24 08:59 09/23/24 08:59 1 EACH Insulin Human Regular (humuLIN R 100 UNIT/ML 3ML) INSULIN SLIDING SCAL... Q4H4 SQ 09/23/24 05:30 10/23/24 05:29 09/23/24 08:58 16 UNIT Lactulose (Constulose 20gm/ 30ml Udcup) 20 gm BID PRN PO CONSTIPATION 09/21/24 06:30 10/21/24 06:29 Magnesium Sulfate 50 ml @ 0 mls/hr PROTOCOL PRN IV other 09/21/24 06:30 10/21/24 06:29 Methylprednisolone Sodium Succinate (Solu-medROL 40MG) 40 mg Q6H IVP 09/21/24 14:30 10/21/24 14:29 09/23/24 09:04 40 MG Nitroglycerin (Nitrostat) 0.4 mg PROTOCOL PRN SL CHEST PAIN 09/21/24 06:30 10/21/24 06:29 Ondansetron HCl (zoFRAN 4MG INJ) 4 mg Q6H PRN IV NAUSEA/VOMITING 09/21/24 06:30 10/21/24 06:29 Pharmacy Profile Note (Pharmacy Communication) 1 each AD MISC 09/22/24 14:30 09/22/24 14:27 DC Polyethylene Glycol (MIRalax 3350 17 GM POWD.PACK) 17 gm DAILY PRN PO CONSTIPATION 09/21/24 07:00 10/21/24 06:59 Zolpidem Tartrate (AmbIEN) 5 mg HS PRN PO INSOMNIA 09/21/24 06:30 10/21/24 06:29 09/21/24 19:30 5 MG DIAGNOSTICS / RADIOLOGY: [ ] ASSESSMENT: [ COPD exacerbation POA Acute on chronic hypoxic respiratory failure requiring BiPAP POA Uncontrolled hypertension POA 07/18/2024 2D echo EF more than 70% stage III diastolic dysfunction] Hyperlipidemia Uncontrolled diabetes mellitus type 2 with hypoglycemia POA Acute on chronic kidney injury POA ] 09/21/2024 CT chest right-sided pneumonia, possible aspiration PNA 09/21/2024 CT chest bilateral pleural effusions Hyperglycemia PLAN: [ Admit to: Medical-surgical floor with tele Consults: Chargeback Specialist Antibiotics: Doxycycline Tests: V/Q scan and 6 min walk prior dc NEURO: Minimize central acting medications as possible. Fall Precautions. Well lighted room through the day and minimize interruptions through the night to prevent acute delirium. PULMONARY: Supplemental 02 as needed BiPAP as necessary, for respiratory distress Titrate Fio2 to keep Spo2 > or = 90% DuoNebs and CPT as needed IS hourly while awake for pulmonary hygiene Out of bed to chair as tolerated VAP Bundle Maintain aspiration precautions at all times CARDIOVASCULAR: Follow hemodynamics. Vital signs per facility protocol GI & NUTRITION: Continue nutritional support Aspirations precautions Prokinetic agents and laxatives as needed KIDNEYS & ELECTROLYTES: Strict monitoring of intake and output Daily weights Avoid nephrotoxic agents Monitor electrolytes and replace as needed Goal urine output of 30mL/hr or 0.5mL/kg/hr Medications to be dosed according to renal function. Avoid contrast if possible ENDOCRINE: Maintain blood glucose between 100-180 at all times. Insulin sliding scale for blood glucose management Hypoglycemia and hyperglycemia protocol in place Patient will be started with Lantus 20 units b.i.d., we will give 10 units now INFECTIOUS DISEASE: Trend temperature, WBC and procalcitonin level Follow cultures, deescalate antibiotics as soon as possible. Panculture if new onset fever HEMATOLOGY & COAGULATION: Monitor H&H. Keep Hgb > 7 Transfuse 1 unit of PRBC for Hgb < 7 Transfuse 1 pack of platelets of platelets < 20, 000 Watch for any signs and symptoms of bleeding SKIN: Pressure ulcer prevention per facility protocol Specialty mattress as needed Treatment plan discussed with patient and family at the bedside Medications to be reconciled once obtained by patient and/or family and available to be reconciled in computer p.r.n. medication for pain nausea and vomiting Questions were answered We will continue to monitor the patient closely [employer] Sales Representative for disposition Rehab: PT/OT GI: PPI DVT: SCD's Code Status: Full Resuscitation Disposition: TBD Prognosis: Guarded ] ATTESTATION BY PHYSICIAN I have seen and examined the patient. I reviewed the documentation, medical decision making, and treatment plan as noted by the mid-level provider above. I agree with the findings and plan of care. JULI ARBEU MD, JANICE B [facility] Sep 23, 2024 09:05
[2024-09-23] MEDS: INSULIN GLARgine 100 UNITS/ML 10 ML VIAL SQ ONE (13:04)
--- NOTE | 2024-09-23 15:25 | NUR ---
D/C PLAN Patient is a readmission to this hospital from less than 2 weeks ago. CM spoke to patient regarding d/c planning. Patient lives alone. Patient has a provider 35 hrs/week. States he attends [facility] day care. Reports he has a walker. Denies having any home o2. Patient prefers to return home. CM to f/u for possible home o2 needs. Addendum: 09/23/24 at 1600 by NATHANIEL SALAS CM Amended: Links added.
--- NOTE | 2024-09-23 19:21 | PN ---
[facility] PROGRESS NOTE Date Patient Seen: Sep 23, 2024 Time of Visit: 13:18 Supervising Physician: HOLLY CAMERON Attending Physician: Hospitalist Team Primary Care Physician: Dr. Cheko Kincaid PROBLEM LIST: Acute on chronic hypoxemic respiratory failure requiring BiPAP on admission Acute COPD exacerbation Acute diastolic CHF exacerbation, EF 70 % Right sided pneumonia Uncontrolled hypertension Dyslipidemia Diabetes Mellitus, type II INTERVAL HISTORY: 09/22 [Patient is 79 years old and currently on supplemental oxygen via nasal cannula at 2 L No fevers, no chills Patient complains of cough with phlegm, no hemoptysis Patient on BiPAP overnight, slept well Pending cultures, no chills, no fevers Good appetite, no constipation Maintains good urinary output ] 09/23 Patient een and examined at the bedside he is awake , alert, well oriented, not in distress denies fever, chills, chest pain or SOB, no nausea or vomiting feeling better plan is to be discharge per PCP recommended to follow up at the pulmonary clinic . REVIEW OF SYSTEMS: 12 point ROS reviewed with patient. Pertinent positives mentioned above. Otherwise negative. PHYSICAL EXAM: GENERAL: alert, weak, awake oriented x 3, in moderate respiratory distress, on Bipap support HEENT: EOMI, Sclera non icteric, moist mucosa NECK: Supple, no JVD, trachea midline LUNGS: No wheezing, decreased air entry at the bases bilaterally HEART: Regular rate and rhythm. Normal S1 and S2, without murmurs ABD: Abdomen soft, nontender. Bowel sounds present EXT: No clubbing cyanosis or edema NEURO: Alert and oriented to person, follows commands Vital Signs (last 8hr) Date Time Temp Pulse Resp B/P (MAP) Pulse Ox O2 Delivery O2 Flow Rate FiO2 09/23/24 16:00 98.8 65 20 116/66 98 Room Air 09/23/24 14:53 68 18 09/23/24 12:59 97.7 65 20 111/60 98 Nasal Cannula LABS: Hematology Labs: Test 09/23/24 03:27 Range/Units White Blood Count 8.1 4.8-10.8 K/uL Red Blood Count 4.77 4.50-6.20 MIL/uL Hemoglobin 10.8 L 14.0-18.0 g/dL Hematocrit 35.1 L 42-54 % Mean Corpuscular Volume 73.6 L 79-99 fL Mean Corpuscular Hemoglobin 22.6 L 27.0-33.0 pg Mean Corpuscular Hemoglobin Concent 30.8 L 32.0-36.0 g/dL Red Cell Distribution Width 17.1 H 11.0-15.5 % Platelet Count 237 130-400 K/uL Mean Platelet Volume 10.0 7.5-10.5 fL Immature Granulocyte % (Auto) 0.6 0-1 % Neutrophils (%) (Auto) 90.2 H 40.0-77.0 % Lymphocytes (%) (Auto) 6.6 L 21.0-51.0 % Monocytes (%) (Auto) 2.6 L 3.0-13.0 % Eosinophils (%) (Auto) 0.0 0.0-8.0 % Basophils (%) (Auto) 0.0 0.0-5.0 % Neutrophils # (Auto) 7.3 1.8-7.7 K/uL Lymphocytes # (Auto) 0.5 L 1.0-4.8 K/uL Monocytes # (Auto) 0.2 0.1-1.0 K/uL Eosinophils # (Auto) 0.00 0.00-0.70 K/uL Basophils # (Auto) 0.00 0.00-0.20 K/uL Absolute Immature Granulocyte (auto 0.05 0-1 K/uL Nucleated Red Blood Cells 0.0 0.0-0.19 % White Cell Morphology Comment See comments Chemistry Labs: Test 09/23/24 16:22 09/23/24 03:27 09/22/24 03:12 Range/Units Whole Blood Glucose 158 H 70-110 MG/DL Sodium Level 126 L 136-145 mmol/L Potassium Level 4.0 3.5-5.1 mmol/L Chloride Level 94 L 101-111 mmol/L Carbon Dioxide Level 27 21-32 mmol/L Blood Urea Nitrogen 46 H 7-18 mg/dL Creatinine 1.7 H 0.5-1.3 mg/dL Glomerular Filtration Rate Calc 41 >90 mL/min Random Glucose 520 *H 70-105 mg/dL Total Calcium 8.2 L 8.5-10.1 mg/dL Magnesium Level 2.40 1.80-2.40 mg/dL Total Bilirubin 0.7 0.2-1.0 mg/dL Aspartate Amino Transf (AST/SGOT) 30 10-37 U/L Alanine Aminotransferase (ALT/SGPT) 38 12-78 U/L Alkaline Phosphatase 113 50-136 U/L B-Type Natriuretic Peptide 519 H 0-100 pg/mL Total Protein 6.7 6.0-8.3 g/dL Albumin 3.4 L 3.5-5.0 g/dL Hemoglobin A1c 7.9 H 4.8-5.6 % Lactic Acid Level 1.9 0.8-2.5 mmol/L Direct Bilirubin 0.2 0.0-0.3 mg/dL Ammonia 12 11-32 umol/L Total Creatine Kinase 114 # 21-232 U/L Troponin I High Sensitivity 18.0 4-75 ng/L Procalcitonin 0.30 0.05-0.5 ng/mL DIAGNOSTICS / RADIOLOGY RESULTS: [ ] Plan: Continue inpatient medical management DISCHARGE PER PRIMARY FOLLOW UP AT THE PULMONARY CLINIC AN OUTPATIENT ATTESTATION BY PHYSICIAN Documentation assistance provided by a scribe, information recorded by the scribe was done at my direction and has been reviewed and validated by me." RAKESH BARRERA MD I personally scribed for RAKESH BARRERA MD ([email or web address]) on 09/23/24 at 19:21. Elect ronically submitted by Heidy Kincaid ([id number]). RAKESH BARRERA MD Sep 23, 2024 19:21
[2024-09-23] MEDS: INSULIN GLARgine 100 UNITS/ML 10 ML VIAL SQ SCH (20:35)
[2024-09-24] VITALS (7 sets, daily range): BP systolic 130–154; BP diastolic 70–80; PULSE 69–86; RESP 18; TEMP 98.1–98.6; O2SAT 95–99
[2024-09-24 03:44] LABS: HEMATOCRIT 32.6 % (42-54); MEAN CORPUSCULAR HEMOGLOBIN 22.4 pg (27.0-33.0); MEAN CORPUSCULAR HGB CONC 30.7 g/dL (32.0-36.0); MEAN CORPUSCULAR VOLUME 73.1 fL (79-99); RED BLOOD CELL COUNT(AUTO) 4.46 MIL/uL (4.50-6.20); WHITE BLOOD COUNT (AUTO) 7.9 K/uL (4.8-10.8)
[2024-09-24 03:50] LABS: CREATININE 1.3 mg/dL (0.5-1.3); POTASSIUM 3.7 mmol/L (3.5-5.1)
--- NOTE | 2024-09-24 07:11 | NUR ---
MRSA Sputum cx result Paged hospitalist at this time regarding result. Pt not seen on susceptible abx.
[2024-09-24] MEDS ORDERED: FURO40TA5 PO (09:07)
[2024-09-24] MEDS ORDERED: SULF1TAB42 PO (09:07)
[2024-09-24] MEDS ORDERED: METH4TAB3 PO (09:07)
--- NOTE | 2024-09-24 09:16 | DS ---
Discharge Summary Hospital Course Summary: Patient is 79 years old male with a past medical history of COPD, hyperlipidemia, hypertension, pacemaker, AFib, diabetes, CYRUS, CHF diastolic dysfunction, who came to emergency department via EMS with a increased shortness of breaths and respiratory distress for about 2 hours. Patient was just recently admitted and then discharged from [facility] between 09/10 and 09/13 with same complaint. ] EMS reported that he was in moderate distress and they placed him on O2, gave albuterol nebulizer treatment prior to arrival in the ER. Patient appeared to be in moderate distress, speaks in broken sentences. No diaphoresis. Patient reported that he was recently treated with antibiotic therapy and steroids. No recent travel or new pets at home. He reported progressively getting worse with reduced exercise tolerance over the years. He admits to cough with very scant amounts of sputum if any. No hemoptysis. Patient has never been intubated in the past. In the ED a stat ABG was obtained which showed a pH of 7.36 pCO2 of 35 PO2 of 93 on FiO2 of 100% His vital signs in the ED showed temperature of 98.1 pulse 84 respiration 28 blood pressure 137/67. Patient was placed on BiPAP support with FiO2 30%. His labs in the ED showed WBC 12.2 hemoglobin 10.9 hematocrit 36.8 platelets 223. Sodium 138 potassium 3.5 CO2 28 creatinine 1.5 BUN 25 GFR 136 calcium 8.8 CK 147 troponin negative x1 BNP 519 lactic acid 1.9. 09/21/2024 chest x-ray shows stable exam. 09/21/2024 CT chest showed right- sided pneumonia bilateral pleural effusions. Storage Garage Attendant has been consulted for which they monitored patient, patient was placed on BiPAP support and titrated until patient improved. Now patient is on room air. Sputum culture came back positive with Staphylococcus aureus with MRSA. Sensitivity reviewed, patient will be discharged with Bactrim DS 100 mg p.o. b.i.d. x7 days. Patient is hemodynamically stable. He improved, he denies any shortness of breaths. Patient is able to be discharged home on room air. Labs reviewed. Discussed follow-up with patient's PCP in 2-3 days, recommended to follow up with galley cook in one week. Patient verbalized understanding. Supervisor Underwriting Clerks(s): Dr. Brant Calzada-galley cook Procedure(s): [place] [id number] [place] [address] IMAGING REPORT Signed PATIENT: LOIS HOOKER MR#: [id number] : 1945 SEX: M AGE: 79 LOCATION: EDHIP ORDER 6 STATUS: ADM IN REPORT#: [id number] SERVICE 3 REASON: pleural efusions, pna ORDERING PHYSICIAN: GUZMAN VIEYRA LINUX SERVER ENGINEER PROCEDURE: CHEST WO - CT CHEST W/O CONTRAST CT NONCONTRAST CHEST Comparison Study: none History: pleural efusions, pna Technique: Helical CT of the chest without IV contrast at 5 mm collimation. Coronal and sagittal reformations also done. CT Dose Index (CTDI): 2.38 mGy Dose Length Product (DLP): 94.8 total mGy-cm Findings: The airway is intact. The trachea and major bronchi are unremarkable. The chest exam shows no pulmonary nodules or masses. No significant pulmonary parenchymal abnormalities are noted. Defined infiltrates particularly throughout the right lung consistent with pneumonia. Bilateral pleural effusions, small on the left, moderate on the right. There is no pneumothorax. There is no evidence of pneumomediastinum. The nonenhanced exam of the yvon and mediastinum is unremarkable. No evidence of hilar enlargement is seen. The aorta shows no aneurysmal dilatation or significant atheromatous calcification. No significant brachiocephalic vascular abnormalities are seen. The heart is unremarkable. It is not enlarged. No significant coronary arterial calcifications are seen. There is no pericardial effusion. The rib cage appears unremarkable. The soft tissues of the chest wall are unremarkable. The dorsal spine shows no significant abnormalities. IMPRESSION: Right-sided pneumonia. Follow-up advised. Bilateral pleural effusions. This study was performed using dose reduction techniques to include automated exposure control and/or adjustment of the mA and/or kV according to patient size. DICTATED BY: LUIS BURLESON MD DATE: 09/21/24813 ELECTRONICALLY SIGNED BY: LUIS BURLESON MD DATE: 09/21/24825 Assessment/Plan: Discharge Diagnoses Acute on chronic hypoxemic respiratory failure requiring BiPAP on admission- resolved Acute COPD exacerbation-improved Acute diastolic CHF exacerbation, EF 70 % Right sided pneumonia Uncontrolled hypertension-improved Dyslipidemia Diabetes Mellitus, type II,with hyperglycemia- improved Admitting Diagnoses: [ COPD exacerbation POA Acute on chronic hypoxic respiratory failure requiring BiPAP POA Uncontrolled hypertension POA 07/18/2024 2D echo EF more than 70% stage III diastolic dysfunction] Hyperlipidemia Uncontrolled diabetes mellitus type 2 with hypoglycemia POA Acute on chronic kidney injury POA ] 09/21/2024 CT chest right-sided pneumonia, possible aspiration PNA 09/21/2024 CT chest bilateral pleural effusions Hyperglycemia PLAN: Patient will be discharged home, his shortness of breaths improved. Patient patient to follow up with PCP in 2-3 days Follow-up with galley cook in one week Discharge Instructions: Patient to follow up with PCP in 2-3 days Follow-up with galley cook in one week Patient will be discharged with Bactrim DS 100 mg p.o. b.i.d. x7 days Continue with home medications Home Medications: Active Scripts Methylprednisolone (Medrol) 4 Mg Tab.ds.pk, 1 TAB PO AD for 6 Days, #21 TAB 0 Refills 6 on day 1 then reduce by one tablet daily until gone Prov:ANA CRISTINA MIDDLETON AGPCNP 09/24/24 Sulfamethoxazole/Trimethoprim (Bactrim Ds Tablet) 800 Mg-160 Mg Tablet, 1 TAB PO BID for 7 Days, #14 TAB 0 Refills Prov:ANA CRISTINA MIDDLETONPCJENIFFER 09/24/24 Furosemide (Furosemide) 40 Mg Tablet, 1 TAB PO DAILY for 30 Days, #30 TAB 0 Refills Prov:ANA CRISTINA MIDDLETON AGPCJENIFFER 09/24/24 Fluticasone/Salmeterol (Advair Hfa 45-21 Mcg Inhaler) 45 Mcg-21 Mcg/Actuation Hfa.aer.ad, 2 PUFF IH BID PRN for SHORTNESS OF BREATH for 30 Days, #1 INHALER 0 Refills Prov:RJ LEON NP 07/21/24 Hydralazine HCl (Hydralazine HCl) 50 Mg Tablet, 50 MG PO BID for 30 Days, #30 TAB Prov:RJ LEON NP 07/21/24 Reported Medications Aspirin (Aspirin) 81 Mg Tab.chew, 1 TAB PO DAILY for 30 Days, #30 TAB 0 Refills 09/10/24 Dapagliflozin Propanediol (Farxiga) 10 Mg Tablet, 1 TAB PO DAILY for 30 Days, #30 TAB 0 Refills 09/10/24 Amlodipine Besylate (Amlodipine Besylate) 5 Mg Tablet, 1 TAB PO DAILY for 30 Days, #30 TAB 0 Refills 09/10/24 Atorvastatin Calcium (Atorvastatin Calcium) 40 Mg Tablet, 1 TAB PO DAILY for 30 Days, #30 TAB 0 Refills 07/17/24 Glipizide (Glipizide ER) 5 Mg Tab.er.24, 1 TAB PO DAILY for 30 Days, #30 TAB 0 Refills 07/17/24 Discontinued Reported Medications Furosemide (Furosemide) 20 Mg Tablet, 1 TAB PO DAILY for 30 Days, #30 TAB 0 Refills 09/10/24 Aspirin (Aspirin EC) 81 Mg Tablet.dr, 1 TAB PO DAILY for 30 Days, #30 TAB 0 Refills 07/17/24 Dapagliflozin/Metformin HCl (Xigduo Xr 5 mg-1,000 mg Tablet) 5 Mg-1,000 Mg Tab.bp.24h, 1 TAB PO DAILY for diabetes for 30 Days, #30 TAB 0 Refills 07/17/24 New Medications: Furosemide (Furosemide) 40 Mg Tablet 1 TAB PO DAILY for 30 Days, #30 TAB 0 Refills Methylprednisolone (Medrol) 4 Mg Tab.ds.pk 1 TAB PO AD for 6 Days, #21 TAB 0 Refills 6 on day 1 then reduce by one tablet daily until gone Sulfamethoxazole/Trimethoprim (Bactrim Ds Tablet) 800 Mg-160 Mg Tablet 1 TAB PO BID for 7 Days, #14 TAB 0 Refills Continued Medications: Amlodipine Besylate (Amlodipine Besylate) 5 Mg Tablet 1 TAB PO DAILY for 30 Days, #30 TAB 0 Refills Aspirin (Aspirin) 81 Mg Tab.chew 1 TAB PO DAILY for 30 Days, #30 TAB 0 Refills Atorvastatin Calcium (Atorvastatin Calcium) 40 Mg Tablet 1 TAB PO DAILY for 30 Days, #30 TAB 0 Refills Dapagliflozin Propanediol (Farxiga) 10 Mg Tablet 1 TAB PO DAILY for 30 Days, #30 TAB 0 Refills Fluticasone/Salmeterol (Advair Hfa 45-21 Mcg Inhaler) 45 Mcg-21 Mcg/Actuation Hfa.aer.ad 2 PUFF IH BID PRN for SHORTNESS OF BREATH for 30 Days, #1 INHALER 0 Refills Glipizide (Glipizide ER) 5 Mg Tab.er.24 1 TAB PO DAILY for 30 Days, #30 TAB 0 Refills Hydralazine HCl (Hydralazine HCl) 50 Mg Tablet 50 MG PO BID for 30 Days, #30 TAB Discontinued Medications: Aspirin (Aspirin EC) 81 Mg Tablet.dr 1 TAB PO DAILY for 30 Days, #30 TAB 0 Refills Dapagliflozin/Metformin HCl (Xigduo Xr 5 mg-1,000 mg Tablet) 5 Mg-1,000 Mg Tab.bp.24h 1 TAB PO DAILY for diabetes for 30 Days, #30 TAB 0 Refills Furosemide (Furosemide) 20 Mg Tablet 1 TAB PO DAILY for 30 Days, #30 TAB 0 Refills Time spent arranging discharge: 31-60 minutes ATTESTATION BY PHYSICIAN I have seen and examined the patient. I reviewed the documentation, medical decision making, and treatment plan as noted by the mid-level provider above. I agree with the findings and plan of care. JULI ABREU MD, [facility] Sep 24, 2024 09:16
--- NOTE | 2024-09-24 11:45 | NUR ---
DISCHARGE INSTRUCTIONS WERE GIVEN TO THIS PATIENT AND HE WAS IN AGREEMENT TO ATTEND APPTS. AND VOICED UNDERSTANDING. HARD COPY OF NEW PRESCRIPTIONS AND PROVIDED ( COPY IN CHART). PIV TO LEFT WRIST WAS REMOVED WITH CATHETER INTACT AND DRY DRESSING APPLIED. TELE PALLAVI WAS REMOVED AND RETURNED. ALL BELONGINGS WERE ACCOUNTED FOR. PATIENT WAS TAKEN TO PRIVATE VEHICLE VIA WHEELCHAIR.
== END 2024-09-24 12:05 | disposition home or self-care (01) | DRG 193 ==
LOC: EDH 03:02 → EDHIP 06:29 → 3DH 12:04 → EDHIP 12:30 → 2DH 22:02
PROVIDERS: ADMIT Internal Medicine; ATTEND Internal Medicine
PROC: 5A09357 Assistance with Respiratory Ventilation, Less than 24 Consecutive Hours, Continuous Positive Airway Pressure (ICD-10-PCS; principal; 2024-09-21)
PROC: 5A09357 Assistance with Respiratory Ventilation, Less than 24 Consecutive Hours, Continuous Positive Airway Pressure (ICD-10-PCS; 2024-09-22)
PROC: 5A09357 Assistance with Respiratory Ventilation, Less than 24 Consecutive Hours, Continuous Positive Airway Pressure (ICD-10-PCS; 2024-09-23)
DX: J18.9 Pneumonia, unspecified organism (principal); I50.33 Acute on chronic diastolic (congestive) heart failure; J96.21 Acute and chronic respiratory failure with hypoxia; J44.1 Chronic obstructive pulmonary disease with (acute) exacerbation; N17.9 Acute kidney failure, unspecified; J91.8 Pleural effusion in other conditions classified elsewhere; I13.0 Hypertensive heart and chronic kidney disease with heart failure and stage 1 through stage 4 chronic kidney disease, or unspecified chronic kidney disease; J44.0 Chronic obstructive pulmonary disease with (acute) lower respiratory infection; Z20.822 Contact with and (suspected) exposure to COVID-19; I48.91 Unspecified atrial fibrillation; E11.649 Type 2 diabetes mellitus with hypoglycemia without coma; E11.65 Type 2 diabetes mellitus with hyperglycemia; E11.22 Type 2 diabetes mellitus with diabetic chronic kidney disease; N18.9 Chronic kidney disease, unspecified; E78.5 Hyperlipidemia, unspecified
CPT/HCPCS: 36415; 36600; 71045; 71250; 80048; 80053; 80076; 81001; 82140; 82435; 82550; 82803; 82947; 82948; 83036; 83605; 83735; 83880; 84132; 84145; 84295; 84484; 85018; 85025; 85027; 85378; 87040; 87071; 87086; 87186; 87205; 87635; 87804; 93005; 94640; 94660; 94664; 94760; 96374; 96375; 99291; G0378; J0692; J1815; J1940; J2919; J3490; Q0163

== ENCOUNTER 2024-10-04 23:49 | Emergency (ER) | payer MEDICARE ==
[~2024-10-04] VITALS: Ht 167.6 cm; Wt 73.5 kg
[~2024-10-04 23:49] MED LIST changes: -ASPI-1443 PO; -DAPA1TAB3 PO; -FURO20TA4 PO; +FURO40TA5 PO; +METH4TAB3 PO; +SULF1TAB42 PO
[2024-10-05 00:48] LABS: BASOPHILS # (AUTO) 0.04 K/uL (0.00-0.20); BASOPHILS % (AUTO) 0.2 % (0.0-5.0); EOSINOPHILS # (AUTO) 0.03 K/uL (0.00-0.70); EOSINOPHILS % (AUTO) 0.2 % (0.0-8.0); HEMATOCRIT 40.5 % (42-54); IMMATURE GRANULOCYTE ABSOLUTE 0.08 K/uL (0-1); LYMPHOCYTES # (AUTO) 0.6 K/uL (1.0-4.8); LYMPHOCYTES % (AUTO) 3.9 % (21.0-51.0); MEAN CORPUSCULAR HEMOGLOBIN 22.4 pg (27.0-33.0); MEAN CORPUSCULAR HGB CONC 31.1 g/dL (32.0-36.0); MEAN CORPUSCULAR VOLUME 72.1 fL (79-99); MONOCYTES # (AUTO) 0.9 K/uL (0.1-1.0); MONOCYTES % (AUTO) 5.4 % (3.0-13.0); NEUTROPHILS # (AUTO) 14.6 K/uL (1.8-7.7); NEUTROPHILS % (AUTO) 89.8 % (40.0-77.0); PLATELET COUNT (AUTO) 166 K/uL (130-400); RED BLOOD CELL COUNT(AUTO) 5.62 MIL/uL (4.50-6.20); RED CELL DISTRIBUTION WIDTH 17.9 % (11.0-15.5); WHITE BLOOD COUNT (AUTO) 16.3 K/uL (4.8-10.8)
[2024-10-05 00:57] LABS: CREATININE 1.2 mg/dL (0.5-1.3); POTASSIUM 3.9 mmol/L (3.5-5.1)
[2024-10-05 01:01] LABS: ALBUMIN 3.6 g/dL (3.5-5.0); BILIRUBIN,TOTAL 0.6 mg/dL (0.2-1.0); TOTAL PROTEIN, SERUM 6.6 g/dL (6.0-8.3)
--- NOTE | 2024-10-05 01:12 | ERN ---
ED Note History of Present Illness Stated Complaint: FALL, GBW, VOMITING Chief Complaint: Mechanical Fall Time Seen by MD: 00:02 Time Seen by Midlevel: 00:02 Dictation: The patient is a 79-year-old male with a history of diabetes, hypertension, AFib, pacemaker who presents to the emergency department via EMS for a fall from his bed. Patient reports fall happened around 8:00 p.m. reports he was not able to get up and stayed on the floor for about3 hours before he could finally reach the phone to call EMS. Patient reports living alone. Reports an episode of nonbloody vomiting after the fall. Patient denies any LOC, head trauma, use of blood thinners. Denies any pain. Denies fever, diarrhea constipation. Patient is poor historian. Allergies: Coded Allergies: No Known Drug Allergies (Unverified Allergy, Unknown, 07/17/24) Home Meds Active Scripts Methylprednisolone (Medrol) 4 Mg Tab.ds.pk, 1 TAB PO AD for 6 Days, #21 TAB 0 Refills 6 on day 1 then reduce by one tablet daily until gone Prov:ANA CRISTINA MIDDLETON AGPCNP 09/24/24 Sulfamethoxazole/Trimethoprim (Bactrim Ds Tablet) 800 Mg-160 Mg Tablet, 1 TAB PO BID for 7 Days, #14 TAB 0 Refills Prov:ANA CRISTINA MIDDLETONPCJENIFFER 09/24/24 Furosemide (Furosemide) 40 Mg Tablet, 1 TAB PO DAILY for 30 Days, #30 TAB 0 Refills Prov:ANA CRISTINA MIDDLETON AGPCNP 09/24/24 Fluticasone/Salmeterol (Advair Hfa 45-21 Mcg Inhaler) 45 Mcg-21 Mcg/Actuation Hfa.aer.ad, 2 PUFF IH BID PRN for SHORTNESS OF BREATH for 30 Days, #1 INHALER 0 Refills Prov:RJ LEON NP 07/21/24 Hydralazine HCl (Hydralazine HCl) 50 Mg Tablet, 50 MG PO BID for 30 Days, #30 TAB Prov:RJ LEON NP 07/21/24 Reported Medications Aspirin (Aspirin) 81 Mg Tab.chew, 1 TAB PO DAILY for 30 Days, #30 TAB 0 Refills 09/10/24 Dapagliflozin Propanediol (Farxiga) 10 Mg Tablet, 1 TAB PO DAILY for 30 Days, #30 TAB 0 Refills 09/10/24 Amlodipine Besylate (Amlodipine Besylate) 5 Mg Tablet, 1 TAB PO DAILY for 30 Days, #30 TAB 0 Refills 09/10/24 Atorvastatin Calcium (Atorvastatin Calcium) 40 Mg Tablet, 1 TAB PO DAILY for 30 Days, #30 TAB 0 Refills 07/17/24 Glipizide (Glipizide ER) 5 Mg Tab.er.24, 1 TAB PO DAILY for 30 Days, #30 TAB 0 Refills 07/17/24 Past Medical History Past Medical History: A-Fib, Diabetes-Type II, High Cholesterol, Heart Disease, Hypertension Surgical History: Pacer/AICD Family History: Negative RN Note Reviewed/Agreed w/PFSH: Yes Review of System Dictation Constitutional: Negative for fever,chills, and weight loss Eyes: Negative for injury, pain,redness, and discharge ENT: Negative for injury,pain or swelling Cardiovascular: Negative for chest pain, palpitations, and edema Respiratory: Negative for shortness of breath, cough, and wheezing, Abdomen/GI: Negative for abdominal pain, diarrhea, and constipation positive for vomiting Back: Negative for injury and pain : Negative for injury, bleeding and discharge MS/Extremity: Negative for injury and deformity Skin: Negative for rash, and discoloration Neuro: Negative for headache, numbness, tingling, and seizure positive for weakness Psych: Negative for suicide ideation, homicidal ideation, and hallucinations Initial Vital Sign VS Vital Signs Date Time Temp Pulse Resp B/P (MAP) Pulse Ox O2 Delivery O2 Flow Rate FiO2 10/04/24 23:50 99.5 79 18 122/70 96 Room Air* 0 21 Physical Exam Dictation Vital Signs reviewed General Appearance: Alert, oriented x 3, no acute distress, well developed, nourished. Head and Face: non-traumatic. Eyes: Right pupil pinpoint, left pupil3 mm, reactive (unknown baseline) , pink conjunctivas, eyelid no trauma, anterior chamber with arcus senilis. Ears: Pinnas intact and no signs of trauma or erythema ear canals clear and no discharge TM no erythema Nose: No discharge, no bleeding. Oropharynx: Mouth normal, tongue pink. pharynx clear,no erythema, tonsils no exudates, no abscesses noted, mucous membrane moist Neck: Supple, non-tender, no thyromegaly, no masses, no JVD, no bruits Breast:Deferred Chest:No tenderness, no crepitus, no paradoxical movement, no retractions Lungs:Clear, well-ventilated, symmetric, no rales, no wheezing, no rhonchi, no stridor, good breath sounds bilaterally Heart: Regular rate, regular rhythm, no murmur, no gallops Vascular: no peripheral edema, Abdomen: Soft, positive bowel sounds, nondistended, no guarding, nontender, no rebound, no masses no hepatomegaly, no splenomegaly, no Finn's sign, no hernias. Rectal: Deferred Genital: Deferred Neurological: Normal speech, motor function intact, sensory function intact Musculoskeletal: Neck nontender, full range of motion, back nontender, full range of motion, Extremities: nontender, full range of motion Skin: Color pink, dry, no turgor, no rash, no lacerations, no abrasions, no contusions. Lymphatic: Deferred Results (Laboratory/Radiology) Laboratory/Radiology Laboratory Tests Test 10/05/24 00:36 10/05/24 02:00 White Blood Count 16.3 K/uL (4.8-10.8) H Red Blood Count 5.62 MIL/uL (4.50-6.20) Hemoglobin 12.6 g/dL (14.0-18.0) L Hematocrit 40.5 % (42-54) L Mean Corpuscular Volume 72.1 fL (79-99) L Mean Corpuscular Hemoglobin 22.4 pg (27.0-33.0) L Mean Corpuscular Hemoglobin Concent 31.1 g/dL (32.0-36.0) L Red Cell Distribution Width 17.9 % (11.0-15.5) H Platelet Count 166 K/uL (130-400) Mean Platelet Volume 9.7 fL (7.5-10.5) Immature Granulocyte % (Auto) 0.5 % (0-1) Neutrophils (%) (Auto) 89.8 % (40.0-77.0) H Lymphocytes (%) (Auto) 3.9 % (21.0-51.0) L Monocytes (%) (Auto) 5.4 % (3.0-13.0) Eosinophils (%) (Auto) 0.2 % (0.0-8.0) Basophils (%) (Auto) 0.2 % (0.0-5.0) Neutrophils # (Auto) 14.6 K/uL (1.8-7.7) H Lymphocytes # (Auto) 0.6 K/uL (1.0-4.8) L Monocytes # (Auto) 0.9 K/uL (0.1-1.0) Eosinophils # (Auto) 0.03 K/uL (0.00-0.70) Basophils # (Auto) 0.04 K/uL (0.00-0.20) Absolute Immature Granulocyte (auto 0.08 K/uL (0-1) Nucleated Red Blood Cells 0.0 % (0.0-0.19) White Cell Morphology Comment See comments Red Blood Cell Morphology See comments Prothrombin Time 11.2 SEC (9.6-11.6) Prothromb Time International Ratio 1.00 (0.85-1.15) Activated Partial Thromboplast Time 27.9 SEC (26.3-35.5) Sodium Level 140 mmol/L (136-145) Potassium Level 3.9 mmol/L (3.5-5.1) Chloride Level 100 mmol/L (101-111) L Carbon Dioxide Level 33 mmol/L (21-32) H Blood Urea Nitrogen 18 mg/dL (7-18) Creatinine 1.2 mg/dL (0.5-1.3) Glomerular Filtration Rate Calc 62 mL/min (>90) Random Glucose 120 mg/dL (70-105) H Total Calcium 8.6 mg/dL (8.5-10.1) Total Bilirubin 0.6 mg/dL (0.2-1.0) Aspartate Amino Transf (AST/SGOT) 21 U/L (10-37) Alanine Aminotransferase (ALT/SGPT) 36 U/L (12-78) Alkaline Phosphatase 154 U/L (50-136) H Total Creatine Kinase 171 U/L (21-232) # Troponin I High Sensitivity 25 ng/L (4-75) Total Protein 6.6 g/dL (6.0-8.3) Albumin 3.6 g/dL (3.5-5.0) Lactic Acid Level 2.0 mmol/L (0.8-2.5) Labs Reviewed?: Yes ED Course ED Course Orders Procedure Category Date Status Time 12 Lead Ekg Tracing- EKG 12/29/24 Logged Technical 00:01 Ct Head/Brain W/O CT 10/05/24 Resulted Contrast 00:01 Troponin I High LAB 10/05/24 Complete Sensitivity 00:01 Cbc With Differential LAB 10/05/24 Complete 00:01 Comprehensive LAB 10/05/24 Complete Metabolic Panel 00:01 Chest 1vw RAD 10/05/24 Taken 00:02 Pt And Ptt LAB 10/05/24 Complete 00:14 Ct Cervical Spine W/O CT 10/05/24 Taken Contrast 00:14 Ct Chest/Abd/Pelv W/O CT 10/05/24 Taken Contrast 00:14 Creatine Kinase, Total LAB 10/05/24 Complete 00:01 Type And Screen BBK 10/05/24 Complete 00:37 Urinalysis Profile LAB 10/05/24 Logged 01:19 Blood Cult KARLOS 10/05/24 In Process 01:19 Lactic Acid LAB 10/05/24 Complete 01:19 Ceftriaxone 1g Vial PHA 10/05/24 Complete (Rocephine 1g Inj) 01:30 Current Medications Medications (Trade) Dose Ordered Sig/Rachelle Route PRN Reason Start Time Stop Time Status Last Admin Dose Admin Ceftriaxone Sodium (ROCEphine 1G INJ) 1 gm ONCE ONCE IVPB 10/05/24 01:30 10/05/24 01:31 DC 10/05/24 01:39 Vital Signs Date Time Temp Pulse Resp B/P (MAP) Pulse Ox O2 Delivery O2 Flow Rate FiO2 10/05/24 01:55 99.3 78 18 154/67 96 Room Air* 0 21 10/05/24 00:56 99.3 80 18 159/70 96 Room Air* 0 21 10/04/24 23:54 99.5 79 18 122/70 96 Room Air 0 10/04/24 23:50 99.5 79 18 122/70 96 Room Air* 0 21 Medical Decision Making MDM MDM: The patient is a 79-year-old male with a history of diabetes, hypertension, AFib, pacemaker who presents to the emergency department via EMS for a fall from his bed. Patient reports fall happened around 8:00 p.m. reports he was not able to get up and stayed on the floor for about3 hours before he could finally reach the phone to call EMS. Patient reports living alone. Reports an episode of nonbloody vomiting after the fall. Patient denies any LOC, head trauma, use of blood thinners. Denies any pain. Denies fever, diarrhea constipation. Patient is poor historian. Differential diagnosis: Dehydration, rhabdomyolysis, ACS, intracerebral hemorrhage, concussion Comorbidities: Diabetes, hypertension, AFib Tests considered and not ordered secondary to shared decision making include: none Previous outside records reviewed: none Risk of complication and/or morbidity or mortality of patient management: The patient meets criteria for admission. Need for emergency major/minor surgery: No There are no social concerns with this patient. I independently interpreted the tests I ordered (labs, urinalysis, etc.). I discussed the case with the hospitalist for admission. I discussed the case with the following specialists: none. Historian: pateint. I independently interpreted imaging studies and EKGs that I ordered (US, CT, XR, EKG, etc.). External chart review: none. Medical management and examination interpretation discussions were had by me with other qualified healthcare professionals as indicated for the patient's care. Patient's CT spine and chest were negative for any acute fracture. Patient will be discharged home DX & DISP Disposition: Discharge Departure Impression: Primary Impression: Fall Condition: Stable Referrals: SELF,REFERRAL (PCP) MARKEL HORTON Oct 05, 2024 01:12 MONIK ALVARADO MD Oct 05, 2024 03:37
[2024-10-05 01:14] LABS: PROTHROMBIN TIME 11.2 SEC (9.6-11.6)
[2024-10-05 01:15] LABS: PARTIAL THROMBOPLASTIN TIME 27.9 SEC (26.3-35.5)
--- NOTE | 2024-10-05 01:16 | HMCIMG ---
CT HEAD/BRAIN W/O CONTRAST HISTORY: Status post fall COMPARISON: None TECHNIQUE: Multiple sequential axial images of the head were obtained from the base of the skull through vertex. Patient was not given contrast through intravenous route. FINDINGS: The ventricles and extraventricular CSF spaces are dilated consistent with cerebral atrophy. Nonspecific white matter changes seen. There is no midline shift, mass effect or herniation. No acute intracranial bleed is seen. There are mild bilateral ethmoid and maxillary sinusitis with mucoperiosteal thickening. IMPRESSION: 1. No acute intracranial bleed is seen. 2. Atrophy with white matter changes. CT was performed with one or more following dose reduction techniques: automated exposure control, adjustment of the mA and kv according to patient's size, or use of a iterative reconstruction technique.
[2024-10-05] MEDS: cefTRIAXone 1G VIAL IVPB ONE (01:39)
--- NOTE | 2024-10-05 05:22 | NUR ---
RECEIEVED PT FROM THE LOBBY, HAS BEEN DC, STARTED TO VOMIT AGAIN THATS WHY HE PROMPTED TO BE SEEN AGAIN PT VS STABLE, ASSUMED PT CARE AT THIS MOMENT
[2024-10-05] MEDS: ondanSETRON ODT 4MG TAB SL ONE (05:51)
[2024-10-05 05:52] VITALS: BP 122/88; PULSE 85; RESP 18; TEMP 98.5; O2SAT 99
--- NOTE | 2024-10-05 06:06 | NUR ---
CATY WITH HIS CARER
--- NOTE | 2024-10-05 08:33 | EKG ---
[facility] Test Date: 2024-10-05 Test Time: 00:24:31 Pat Name: LOIS HOOKER Department: ED Room: Gender: M Dyer Assistant: [id number] : 1945 Requested By: MONIK ALVARADO Order Number: [id number] Reading MD: Chinedu Mcneal Measurements Intervals Hope Rate: 81 P: 14 IL: 255 QRS: -58 QRSD: 173 T: 96 QT: 422 QTc: 489 Interpretive Statements Sinus rhythm Prolonged IL interval RBBB and LAFB Abnormal T, consider ischemia, lateral leads Electronically Signed On 10-05-2024 17:00:56 AIRCRAFT COMMUNICATOR by Chinedu Mcneal Please click the below link to view image of tracing.
--- NOTE | 2024-10-05 08:41 | HMCIMG ---
Exam Type: CT cervical spine without contrast Clinical Information: fall Comparison: None Technique: Spiral axial images were performed from the base of the skull down to the thoracic vertebral bodies. Both sagittal and coronal reconstructions were performed. CT Dose Index (CTDI): 12.85 mGy Dose Length Product (DLP): 282.6 total Findings: There is normal alignment of the vertebral bodies. There are no fractures. No facet hypertrophy. The prevertebral soft tissues are normal. IMPRESSION: NORMAL CERVICAL SPINE CT. This study was performed using dose reduction techniques to include automated exposure control and/or adjustment of the mA and/or kV according to patient size.
--- NOTE | 2024-10-05 08:54 | HMCIMG ---
Exam Type: CT CHEST/ABD/PELV W/O CONTRAST Clinical Information: fall Comparison: None CT Dose Index (CTDI): 19.73 mGy Dose Length Product (DLP): 1260.8 total mGy PROTOCOL: Examination is done at 2.5 millimeter volumetric acquisition . Photography is done at 5 millimeter thick intervals for the thorax. Findings: CHEST The airway is intact. The trachea and major bronchi are unremarkable. The chest exam shows no pulmonary nodules or masses. No significant pulmonary parenchymal abnormalities are noted. No pulmonary infiltrates or mass lesions are seen. No pleural effusions are identified. The nonenhanced exam of the yvon and mediastinum is unremarkable. No evidence of hilar enlargement is seen. The aorta shows no aneurysmal dilatation or significant atheromatous calcification. No significant brachiocephalic vascular abnormalities are seen. The heart is unremarkable. It is not enlarged. No significant coronary arterial calcifications are seen. There is no pericardial effusion. The rib cage appears unremarkable. The soft tissues of the chest wall are unremarkable. The dorsal spine shows no significant abnormalities. Left cardiac pacemaker is noted with leads in place. ABDOMEN/ PELVIS No evidence of nephro or ureterolithiasis is found. No hydronephrosis or ureteral dilatation is seen. The lung bases are clear. The stomach is unremarkable. It shows no wall thickening. No gross ulceration is seen. It is not overly distended. There are no surrounding inflammatory changes. No wall lesions are identified to suggest cancer. The spleen is unremarkable. It is not enlarged. The pancreas shows normal anatomy. It is not fatty replaced. It shows no lesions. The pancreatic duct is not dilated. The gallbladder is unremarkable. It shows no cholelithiasis. The gallbladder wall is normal in thickness. There is no pericholecystic fluid. The is no acute or chronic inflammation noted. The adrenal glands are unremarkable. There is no enlargement. No lesions are noted. The liver is unremarkable. It shows no focal masses. The appendix is unremarkable. It shows no evidence of inflammation. No appendicolith is seen. The small bowel is unremarkable. There is no evidence of dilatation to suggest obstruction. No evidence of adynamic ileus is seen. There is no small bowel wall thickening to suggest enteritis. The colon is unremarkable. The urinary bladder is unremarkable. There is no wall thickening to suggest tumor or inflammation. There are no intraluminal calculi. There are no diverticula. There is no evidence of chronic bladder outlet obstruction. There is no evidence of urinary bladder distention to suggest urinary retention. The other pelvic structures are unremarkable. The bony and vascular structures are unremarkable for the patient's age. Impression: Normal chest examination. Clear lungs. No infiltrates. No mediastinal lymphadenopathy. Normal abdomen and pelvis exam. This study was performed using dose reduction techniques to include automated exposure control and/or adjustment of the mA and/or kV according to patient size.
--- NOTE | 2024-10-05 09:31 | HMCIMG ---
Exam Type: CHEST 1VW Clinical Information: FALL, COUGH Comparison: None Findings: The lungs are clear of infiltrates. The heart is enlarged in size. The bony and soft tissue structures of the chest are unremarkable. Left cardiac pacemaker is noted with leads in place. Impression: Clear lungs.
== END 2024-10-05 03:41 | disposition home or self-care (01) ==
LOC: EDH 23:49
DX: R11.10 Vomiting, unspecified (principal); R51.9 Headache, unspecified; M54.2 Cervicalgia; E11.9 Type 2 diabetes mellitus without complications; E78.00 Pure hypercholesterolemia, unspecified; I10 Essential (primary) hypertension; I48.91 Unspecified atrial fibrillation; Z79.51 Long term (current) use of inhaled steroids; Z79.82 Long term (current) use of aspirin; Z79.84 Long term (current) use of oral hypoglycemic drugs; Z79.899 Other long term (current) drug therapy; Z95.810 Presence of automatic (implantable) cardiac defibrillator; W06.XXXA Fall from bed, initial encounter; Y93.89 Activity, other specified; Y92.89 Other specified places as the place of occurrence of the external cause; Y99.8 Other external cause status
CPT/HCPCS: 99285; 82550; 84484; 80053; 85025; 85610; 85730; 86850; 86900; 86901; 87040 ×2; 87086; 87186; 83605; 36415; 70450; 96365; 71045; 72125; 71250; 74176; 93005; J0696